=== PATIENT | male | born 1945 | race Caucasian/White ===

== ENCOUNTER 2018-11-13 03:29 | Inpatient (IN) | payer MEDICARE, BC ==
[2018-11-13] MEDS ORDERED: Sodium Chloride 0.9% 1,000 ML IV ONE (03:42)
--- NOTE | 2018-11-13 04:14 | EDM.PDOC ---
"ED HPI GENERAL MEDICAL PROBLEM - General Chief Complaint: Abdominal Pain Stated Complaint: AMBULANCE/UNKNOWN Time Seen by Provider: 11/13/18 03:30 Source of Information: Reports: Patient, EMS History Limitations: Reports: No Limitations - History of Present Illness INITIAL COMMENTS - FREE TEXT/NARRATIVE: ED via [facility] with c/o nausea and vomiting since yesterday., Weak lightheaded this am. Reports emesis dark color since onset yesterday. No diarrhea, Does not feel bloated. SOB this am. Denies chest pain. - Related Data Allergies Allergy/AdvReac Type Severity Reaction Status Date / Time Zqhzock-Ril-Rnm Reductase Allergy Mild muscle pain Verified 08/21/18 15:28 Inhibitor atorvastatin calcium Allergy Other Verified 08/21/18 15:28 [From Lipitor] ezetimibe [From Vytorin] Allergy Other Verified 08/21/18 15:28 lisinopril Allergy Cough Verified 08/21/18 15:28 Penicillins Allergy Rash Verified 08/21/18 15:28 simvastatin Allergy Muscle Verified 08/21/18 15:28 Aches CALCIUM CONTAINTING COMPOUNDS Allergy Other Uncoded 08/21/18 15:28 Home Meds: Home Meds Aspirin [Halfprin] 81 mg PO DAILY 02/27/14 [History] Brimonidine/Timolol [Combigan 0.2%/0.5% Ophth Soln] 1 drop EYEBOTH BID 02/27/14 [History] Insulin Aspart [NovoLOG] 32 units SUBCUT TID 02/27/14 [History] Insulin Detemir [Levemir] 60 units SUBCUT BEDTIME 02/27/14 [History] Levothyroxine 150 mcg PO DAILY 02/27/14 [History] Metoprolol Tartrate [Lopressor] 25 mg PO DAILY 02/27/14 [History] Niacin [Slo-Niacin] 200 mg PO DAILY 02/27/14 [History] amLODIPine Besylate [Amlodipine Besylate] 10 mg PO DAILY 02/27/14 [History] Clopidogrel [Plavix] 75 mg PO DAILY 03/14/14 [History] Losartan [Cozaar] 25 mg PO DAILY 09/27/15 [History] hydroCHLOROthiazide [Hydrochlorothiazide] 12.5 mg PO DAILY 09/27/15 [History] Ascorbate Calcium [Vitamin C] 1 tab PO DAILY 09/28/15 [History] Cholecalciferol (Vitamin D3) [Vitamin D] 1,000 mg PO DAILY 09/28/15 [History] Oxybutynin Chloride [Ditropan Xl] 15 mg PO DAILY 02/06/17 [History] Bimatoprost [LUMIGAN 0.01% Ophth Soln] 1 drop EYEBOTH BEDTIME 11/13/18 [History] Dorzolamide [Trusopt 2% Ophth Soln] 1 drop EYEBOTH BID 11/13/18 [History] Ezetimibe 10 mg PO DAILY 11/13/18 [History] Mirabegron [Myrbetriq] 50 mg PO DAILY 11/13/18 [History] Past Medical History HEENT History: Reports: Glaucoma Other Gastrointestinal History: Rectal bleed Other Musculoskeletal History: some arthritis Other Neuro History: MERALGIA PARESTHETICA Endocrine/Metabolic History: Reports: Diabetes, Type II Other Endocrine/Metabolic History: HYPOTHRYRIODISM - Past Surgical History Other HEENT Surgeries/Procedures: EYE SURGERY Cardiovascular Surgical History: Reports: Coronary Artery Bypass Social & Family History - Living Situation & Occupation Occupation: Retired ED ROS GENERAL - Review of Systems Review Of Systems: ROS reveals no pertinent complaints other than HPI. ED EXAM, GI/ABD - Physical Exam Exam: See Below Exam Limited By: No Limitations General Appearance: Alert, Moderate Distress, Obese Eyes: Bilateral: EOMI Ears: Normal External Exam Nose: Normal Inspection Throat/Mouth: Other (mucus membranes parched) Head: Atraumatic, Normocephalic Neck: Normal Inspection Respiratory/Chest: Lungs Clear Cardiovascular: Normal Peripheral Pulses, Regular Rate, Rhythm GI/Abdominal Exam: Soft, Distended, Tender (general), Abnormal Bowel Sounds ( hypoactive). No: Guarding, Rigid, Rebound Rectal (Males) Exam: Heme - Stool Neurological: Alert, Oriented, Normal Cognition Skin Exam: Warm, Dry, Intact, Other (face flushed) Course - Vital Signs Last Recorded V/S: Last Vital Signs Temp 100.4 F 11/13/18 05:57 Pulse 68 11/13/18 03:33 Resp 18 11/13/18 03:33 BP 128/52 L 11/13/18 03:33 Pulse Ox 96 11/13/18 03:33 - Orders/Labs/Meds Orders: Active Orders 24 hr Category Date Time Status EKG Documentation Completion [RC] URGENT Care 11/13/18 03:42 Active Glucose [Blood Glucose Check, Bedside] [RC] ONETIME Care 11/13/18 05:38 Active CULTURE BLOOD [BC] Stat Lab 11/13/18 03:45 Received CULTURE BLOOD [BC] Stat Lab 11/13/18 04:45 Received UA RFX WHITNEY AND CULT IF INDIC [URIN] Urgent Lab 11/13/18 06:17 Received Blood Culture x2 Reflex Set [OM.PC] Stat Oth 11/13/18 03:44 Ordered Labs: Laboratory Tests 11/13/18 11/13/18 11/13/18 Range/Units 03:45 03:45 03:45 WBC 7.8 (5.0-10.0) 10^3/uL RBC 5.18 (4.6-6.2) 10^6/uL Hgb 15.3 (14.0-18.0) g/dL Hct 44.3 (40.0-54.0) % MCV 85.5 (80-100) fL MCH 29.5 (27.0-34.0) pg MCHC 34.5 (33.0-35.0) g/dL Plt Count 164 (150-450) 10^3/uL Neut % (Auto) 85.0 H (42.2-75.2) % Lymph % (Auto) 11.1 L (20.5-50.1) % Boundary % (Auto) 3.7 (2-8) % Eos % (Auto) 0.1 L (1.0-3.0) % Baso % (Auto) 0.1 (0.0-1.0) % D-Dimer, Quantitative (0-400) ng/mL Sodium 138 (135-145) mmol/L Potassium 3.1 L (3.6-5.0) mmol/L Chloride 98 L (101-111) mmol/L Carbon Dioxide 22.0 (21.0-31.0) mmol/L Anion Gap 21.1 BUN 21 H (7-18) mg/dL Creatinine 1.0 (0.6-1.3) mg/dL Est Cr Clr Drug Dosing 67.93 mL/min Estimated GFR (MDRD) > 60 BUN/Creatinine Ratio 21.00 Glucose 240 H (74-105) mg/dL POC Glucose (83-110) mg/dl Lactic Acid (0.5-2.2) mmol/L Calcium 9.2 (8.4-10.2) mg/dl Magnesium 1.8 (1.8-2.5) mg/dL Total Bilirubin 1.2 H (0.2-1.0) mg/dL AST 26 (10-42) IU/L ALT 23 (10-60) IU/L Alkaline Phosphatase 44 (42-121) IU/L CK-MB (CK-2) 1.80 (0.4-4.7) ng/mL Troponin I < 0.02 (0.00-0.02) ng/ml B-Natriuretic Peptide 28 (0-100) pg/ml Total Protein 7.3 (6.7-8.2) g/dl Albumin 4.3 (3.2-5.5) g/dl Globulin 3.0 Albumin/Globulin Ratio 1.43 Amylase 28 (28-100) U/L Lipase 17 L (22-51) U/L 11/13/18 11/13/18 11/13/18 Range/Units 03:45 03:45 05:42 WBC (5.0-10.0) 10^3/uL RBC (4.6-6.2) 10^6/uL Hgb (14.0-18.0) g/dL Hct (40.0-54.0) % MCV (80-100) fL MCH (27.0-34.0) pg MCHC (33.0-35.0) g/dL Plt Count (150-450) 10^3/uL Neut % (Auto) (42.2-75.2) % Lymph % (Auto) (20.5-50.1) % Boundary % (Auto) (2-8) % Eos % (Auto) (1.0-3.0) % Baso % (Auto) (0.0-1.0) % D-Dimer, Quantitative < 100 (0-400) ng/mL Sodium (135-145) mmol/L Potassium (3.6-5.0) mmol/L Chloride (101-111) mmol/L Carbon Dioxide (21.0-31.0) mmol/L Anion Gap BUN (7-18) mg/dL Creatinine (0.6-1.3) mg/dL Est Cr Clr Drug Dosing mL/min Estimated GFR (MDRD) BUN/Creatinine Ratio Glucose (74-105) mg/dL POC Glucose 216 H (83-110) mg/dl Lactic Acid 1.4 (0.5-2.2) mmol/L Calcium (8.4-10.2) mg/dl Magnesium (1.8-2.5) mg/dL Total Bilirubin (0.2-1.0) mg/dL AST (10-42) IU/L ALT (10-60) IU/L Alkaline Phosphatase (42-121) IU/L CK-MB (CK-2) (0.4-4.7) ng/mL Troponin I (0.00-0.02) ng/ml B-Natriuretic Peptide (0-100) pg/ml Total Protein (6.7-8.2) g/dl Albumin (3.2-5.5) g/dl Globulin Albumin/Globulin Ratio Amylase (28-100) U/L Lipase (22-51) U/L Meds: Medications Discontinued Medications Generic Name Dose Route Start Last Admin Trade Name Lokiq PRN Reason Stop Dose Admin Famotidine 20 mg 11/13/18 04:58 11/13/18 05:27 Pepcid IVPUSH 11/13/18 04:59 20 mg ONETIME ONE Administration Sodium Chloride 1,000 mls @ 500 mls/hr 11/13/18 03:42 11/13/18 03:51 Normal Saline IV 11/13/18 05:41 500 mls/hr .BOLUS ONE Administration Potassium Chloride 10 meq/ 100 mls @ 100 mls/hr 11/13/18 04:30 11/13/18 04:36 Premix IV 11/13/18 05:29 100 mls/hr ONETIME ONE Administration Iopamidol 100 ml 11/13/18 04:35 11/13/18 05:28 Isovue-300 (61%) IVPUSH 11/13/18 04:36 100 ml ONETIME ONE Administration Ondansetron HCl 4 mg 11/13/18 04:58 11/13/18 05:25 Zofran IV 11/13/18 04:59 4 mg ONETIME ONE Administration - Radiology Interpretation Free Text/Narrative:: Name: BHUMI HOLLOWAY Age: 73Years M Date: 11/13/2018 SSN: -- : 1945 Study: XR CHEST 1 VIEW Requesting Physician: NOAH ALMANZA Images: 1 Addl Studies: Provided Clinical History: Contrast: Contrast Medium: Contrast Amount: Contrast Method: CONFIDENTIALITY STATEMENT This report is intended only for use by the referring physician, and only in accordance with law. If you received this in error, call [phone]. Page 1 of 1 EXAM: XR Chest, 1 View EXAM DATE/TIME: 11/13/2018 4:54 AM CLINICAL HISTORY: 73 years old, male; Signs and symptoms; Other: Fever, vomiting, abdominal pain TECHNIQUE: XR of the chest, 1 view. COMPARISON: CR Chest 2V 03/14/2014 7:25 PM FINDINGS: Lungs: Unremarkable. No consolidation. Pleural space: Unremarkable. No pleural effusion. No pneumothorax. Heart/Mediastinum: Unremarkable. No cardiomegaly. Bones/joints: Unremarkable. IMPRESSION: No acute intrathoracic process identified. Status of post open heart surgery Thank you for allowing us to participate in the care of your patient Name: BHUMI HOLLOWAY Age: 73Years M Date: 11/13/2018 SSN: -- : [id number] Study: CT ABDOMEN/PELVIS W Requesting Physician: NOAH ALMANZA Images: 264 Addl Studies: Provided Clinical History: Contrast: With Contrast Medium: Isoview Contrast Amount: 100 mL Contrast Method: RAC Page 1 of 2 EXAM: CT Abdomen and Pelvis With Contrast EXAM DATE/TIME: 11/13/2018 5:04 AM CLINICAL HISTORY: 73 years old, male; Signs and symptoms; Other: Fever, vomiting, abd pain TECHNIQUE: Axial computed tomography images of the abdomen and pelvis with intravenous contrast. All CT scans at this facility use at least one of these dose optimization techniques: automated exposure control; mA and/or kV adjustment per patient size (includes targeted exams where dose is matched to clinical indication); or iterative reconstruction. Coronal and sagittal reformatted images were created and reviewed. CONTRAST: 100 ml of Isoview administered intravenously. COMPARISON: No relevant prior studies available. FINDINGS: Lower thorax: No acute findings. ABDOMEN: Liver: Normal. No mass. Gallbladder and bile ducts: Cholelithiasis Pancreas: Normal. No ductal dilation. Spleen: Normal. No splenomegaly. BHUMI HOLLOWAY | Final Radiology Report CONFIDENTIALITY STATEMENT This report is intended only for use by the referring physician, and only in accordance with law. If you received this in error, call [phone]. Page 2 of 2 - Re-Assessments/Exams Free Text/Narrative Re-Assessment/Exam: 11/13/18 06:25 Dr Kovacs accepting for admission [facility] Departure - Departure Time of Disposition: 06:26 Disposition: Admitted As Inpatient 66 Clinical Impression: Gastroenteritis, Ileus Vomiting Qualifiers: Vomiting type: unspecified Vomiting Intractability: non-intractable Nausea presence: with nausea Qualified Code(s): R11.2 - Nausea with vomiting, unspecified Diabetes Qualifiers: Diabetes mellitus type: type 2 Diabetes mellitus meterman insulin use: unspecified senior care insulin use status Diabetes mellitus complication status: with hyperglycemia Qualified Code(s): E11.65 - Type 2 diabetes mellitus with hyperglycemia - Discharge Information Forms: ED Department Discharge - My Orders Last 24 Hours: My Active Orders 11/13/18 03:42 EKG Documentation Completion [RC] URGENT 11/13/18 03:44 Blood Culture x2 Reflex Set [OM.PC] Stat 11/13/18 03:45 CULTURE BLOOD [BC] Stat 11/13/18 04:45 CULTURE BLOOD [BC] Stat 11/13/18 05:38 Glucose [Blood Glucose Check, Bedside] [RC] ONETIME 11/13/18 06:17 UA RFX WHITNEY AND CULT IF INDIC [URIN] Urgent - Assessment/Plan Last 24 Hours: My Active Orders 11/13/18 03:42 EKG Documentation Completion [RC] URGENT 11/13/18 03:44 Blood Culture x2 Reflex Set [OM.PC] Stat 11/13/18 03:45 CULTURE BLOOD [BC] Stat 11/13/18 04:45 CULTURE BLOOD [BC] Stat 11/13/18 05:38 Glucose [Blood Glucose Check, Bedside] [RC] ONETIME 11/13/18 06:17 UA RFX WHITNEY AND CULT IF INDIC [URIN] Urgent"
[2018-11-13 04:23] LABS: ANION GAP 21.1; CHLORIDE,CL 98 mmol/L (101-111); SODIUM,NA 138 mmol/L (135-145)
[2018-11-13] MEDS ORDERED: Potassium Chloride 10 MEQ in Premix Bag 1 BAG IV ONE (04:30)
[2018-11-13] MEDS ORDERED: Iopamidol 612 MG/ML 100 ML Bottle IVPUSH ONE (04:35)
[2018-11-13] MEDS ORDERED: Famotidine 20 MG/2 ML SDV IVPUSH ONE (04:58)
[2018-11-13] MEDS ORDERED: Ondansetron 4 MG/2 ML SDV IV ONE (04:58)
[2018-11-13] MEDS ORDERED: Magnesium Hydroxide 400 MG/5 ML Susp 30 ML Cup PO PRN (07:21)
[2018-11-13] MEDS ORDERED: Polyethylene Glycol 3350 Powder 17 GM Packet PO PRN (07:21)
[2018-11-13] MEDS ORDERED: Bisacodyl 5 MG Tab PO PRN (07:21)
[2018-11-13] MEDS ORDERED: Promethazine 25 MG/ML SDV IM PRN (07:21)
[2018-11-13] MEDS ORDERED: Promethazine 25 MG Tab PO PRN (07:21)
[2018-11-13] MEDS ORDERED: Ondansetron 4 MG/2 ML SDV IVPUSH PRN (07:21)
[2018-11-13] MEDS ORDERED: Docusate Sodium 100 MG Cap PO PRN (07:21)
[2018-11-13] MEDS ORDERED: Ondansetron 4 MG Tab.DIS PO PRN (07:21)
--- NOTE | 2018-11-13 07:39 | PCM.HP ---
H&P History of Present Illness - General Date of Service: 11/13/18 Admit Problem/Dx: Admission Diagnosis/Problem Admission Diagnosis/Problem Ileus Source of Information: Patient, Provider History Limitations: Reports: No Limitations - History of Present Illness Initial Comments - Free Text/Narative: Mr. Brito is a 73 y.o male with medical history significant for CAD s/p 4vCABG , DM II, HTN, dyslipidemia, hypothyroidism, and appendicitis s/p appendectomy during his teenage years who presented to the ED with complaints of nausea, vomiting, and weakness. Reports that he started having nausea and vomiting around noon yesterday. Reports that he tried to drink water and threw it up. Later tried to drink hot chocolate and also vomited that. States emesis have been either clear or whatever he tried to drink. Cannot recall number of times he vomited. Reports that he had cramping abdominal pain but that has resolved since he got medication in the ED. Reports last bowel movement was yesterday morning before he started having n/v. Denies melena or hematochezia. Reports constipation x2 weeks for which he was taking metamucil but was only having small stools. Reports chills and diaphoresis. States that he started feeling lightheaded and weak so decided to come to the ED. Denies chest pain, fevers, shortness of breath, dysuria, hematuria, or worsening edema. He denies any abdominal trauma. He reports that he quit smoking in 1975, denies alcohol or illicit drug use. Denies any recent opiate medications intake. Reports that he did not take his insulin yesterday. - Related Data Allergies/Adverse Reactions: Allergies Allergy/AdvReac Type Severity Reaction Status Date / Time Fnlwwiu-Pus-Oyx Reductase Allergy Mild muscle pain Verified 08/21/18 15:28 Inhibitor atorvastatin calcium Allergy Other Verified 11/13/18 07:36 [From Lipitor] ezetimibe [From Vytorin] Allergy Other Verified 08/21/18 15:28 lisinopril Allergy Cough Verified 08/21/18 15:28 Penicillins Allergy Rash Verified 08/21/18 15:28 simvastatin Allergy Muscle Verified 08/21/18 15:28 Aches CALCIUM CONTAINTING COMPOUNDS Allergy Other Uncoded 08/21/18 15:28 Home Medications: Home Meds Aspirin [Halfprin] 81 mg PO DAILY 02/27/14 [History] Brimonidine/Timolol [Combigan 0.2%/0.5% Ophth Soln] 1 drop EYEBOTH BID 02/27/14 [History] Insulin Aspart [NovoLOG] 32 units SUBCUT TID 02/27/14 [History] Insulin Detemir [Levemir] 60 units SUBCUT BEDTIME 02/27/14 [History] Levothyroxine 150 mcg PO DAILY 02/27/14 [History] Metoprolol Tartrate [Lopressor] 25 mg PO DAILY 02/27/14 [History] Niacin [Slo-Niacin] 200 mg PO DAILY 02/27/14 [History] amLODIPine Besylate [Amlodipine Besylate] 10 mg PO DAILY 02/27/14 [History] Clopidogrel [Plavix] 75 mg PO DAILY 03/14/14 [History] Losartan [Cozaar] 25 mg PO DAILY 09/27/15 [History] hydroCHLOROthiazide [Hydrochlorothiazide] 12.5 mg PO DAILY 09/27/15 [History] Ascorbate Calcium [Vitamin C] 1 tab PO DAILY 09/28/15 [History] Cholecalciferol (Vitamin D3) [Vitamin D] 1,000 mg PO DAILY 09/28/15 [History] Oxybutynin Chloride [Ditropan Xl] 15 mg PO DAILY 02/06/17 [History] Bimatoprost [LUMIGAN 0.01% Ophth Soln] 1 drop EYEBOTH BEDTIME 11/13/18 [History] Dorzolamide [Trusopt 2% Ophth Soln] 1 drop EYEBOTH BID 11/13/18 [History] Ezetimibe 10 mg PO DAILY 11/13/18 [History] Mirabegron [Myrbetriq] 50 mg PO DAILY 11/13/18 [History] Past Medical History HEENT History: Reports: Glaucoma Cardiovascular History: Reports: CAD, Hypertension Other Gastrointestinal History: Rectal bleed Genitourinary History: Reports: Prostate Disorder Other Musculoskeletal History: some arthritis Other Neuro History: MERALGIA PARESTHETICA Endocrine/Metabolic History: Reports: Diabetes, Type II Other Endocrine/Metabolic History: HYPOTHRYRIODISM - Past Surgical History Other HEENT Surgeries/Procedures: EYE SURGERY Cardiovascular Surgical History: Reports: Coronary Artery Bypass Social & Family History - Tobacco Use Smoking Status *Q: Never Smoker Second Hand Smoke Exposure: No - Caffeine Use Caffeine Use: Reports: Coffee - Recreational Drug Use Recreational Drug Use: No - Living Situation & Occupation Occupation: Retired H&P Review of Systems - Review of Systems: Review Of Systems: ROS reveals no pertinent complaints other than HPI. Exam - Exam Exam: See Below - Vital Signs Vital Signs: Last Vital Signs Temp 100.4 F 11/13/18 05:57 Pulse 110 H 11/13/18 06:25 Resp 20 11/13/18 06:25 BP 162/67 H 11/13/18 06:25 Pulse Ox 94 L 11/13/18 06:25 Weight: 265 lb - Exam Physical Exam Comments:: General: Alert and oriented to place, time and person, in mild distress Head: atraumatic and normocephalic. Eyes: PERRLA, EOMI, anicteric, Ear, Nose and Throat: No gross abnormality found Neck: Supple Respiratory/Chest: CTAB, no wheezes, crackles, rales, or rhonci; Good air entry bilaterally. No increased work of breathing. Median sternotomy scar CVS: RRR, no murmur, rub, or gallop, peripheral pulses palpable. Gastrointestinal/Abd: Soft, distended; no bowel sounds, dull to percussion in the lower abdomen, typanic in the upper abdomen Lt upper > Right Upper Skin: No acute rashes noted. Neuro: Grossly non-focal. No cranial nerve abnormality. Moves all extremities. Psych: Alert and oriented to place time and person. Normal mood, congruent affect, good insight Musculoskeletal: No abnormality noted. Ext: No edema, no ulcers, no tenderness, no size differences, - Patient Data Lab Results Last 24 hrs: Laboratory Results - last 24 hr 11/13/18 11/13/18 11/13/18 Range/Units 03:45 03:45 03:45 WBC 7.8 (5.0-10.0) 10^3/uL RBC 5.18 (4.6-6.2) 10^6/uL Hgb 15.3 (14.0-18.0) g/dL Hct 44.3 (40.0-54.0) % MCV 85.5 (80-100) fL MCH 29.5 (27.0-34.0) pg MCHC 34.5 (33.0-35.0) g/dL Plt Count 164 (150-450) 10^3/uL Neut % (Auto) 85.0 H (42.2-75.2) % Lymph % (Auto) 11.1 L (20.5-50.1) % Mckenzie % (Auto) 3.7 (2-8) % Eos % (Auto) 0.1 L (1.0-3.0) % Baso % (Auto) 0.1 (0.0-1.0) % D-Dimer, Quantitative (0-400) ng/mL Sodium 138 (135-145) mmol/L Potassium 3.1 L (3.6-5.0) mmol/L Chloride 98 L (101-111) mmol/L Carbon Dioxide 22.0 (21.0-31.0) mmol/L Anion Gap 21.1 BUN 21 H (7-18) mg/dL Creatinine 1.0 (0.6-1.3) mg/dL Est Cr Clr Drug Dosing 67.93 mL/min Estimated GFR (MDRD) > 60 BUN/Creatinine Ratio 21.00 Glucose 240 H (74-105) mg/dL POC Glucose (83-110) mg/dl Lactic Acid (0.5-2.2) mmol/L Calcium 9.2 (8.4-10.2) mg/dl Magnesium 1.8 (1.8-2.5) mg/dL Total Bilirubin 1.2 H (0.2-1.0) mg/dL AST 26 (10-42) IU/L ALT 23 (10-60) IU/L Alkaline Phosphatase 44 (42-121) IU/L CK-MB (CK-2) 1.80 (0.4-4.7) ng/mL Troponin I < 0.02 (0.00-0.02) ng/ml B-Natriuretic Peptide 28 (0-100) pg/ml Total Protein 7.3 (6.7-8.2) g/dl Albumin 4.3 (3.2-5.5) g/dl Globulin 3.0 Albumin/Globulin Ratio 1.43 Amylase 28 (28-100) U/L Lipase 17 L (22-51) U/L Urine Color (YELLOW) Urine Appearance (CLEAR) Urine pH (5.0-9.0) Ur Specific [place] (1.005-1.030) Urine Protein (NEGATIVE) Urine Glucose (UA) (NEGATIVE) Urine Ketones (NEGATIVE) Urine Occult Blood (NEGATIVE) Urine Nitrite (NEGATIVE) Urine Bilirubin (NEGATIVE) Urine Urobilinogen (0.2-1.0) mg/dL Ur Leukocyte Esterase (NEGATIVE) 11/13/18 11/13/18 11/13/18 Range/Units 03:45 03:45 05:42 WBC (5.0-10.0) 10^3/uL RBC (4.6-6.2) 10^6/uL Hgb (14.0-18.0) g/dL Hct (40.0-54.0) % MCV (80-100) fL MCH (27.0-34.0) pg MCHC (33.0-35.0) g/dL Plt Count (150-450) 10^3/uL Neut % (Auto) (42.2-75.2) % Lymph % (Auto) (20.5-50.1) % Mckenzie % (Auto) (2-8) % Eos % (Auto) (1.0-3.0) % Baso % (Auto) (0.0-1.0) % D-Dimer, Quantitative < 100 (0-400) ng/mL Sodium (135-145) mmol/L Potassium (3.6-5.0) mmol/L Chloride (101-111) mmol/L Carbon Dioxide (21.0-31.0) mmol/L Anion Gap BUN (7-18) mg/dL Creatinine (0.6-1.3) mg/dL Est Cr Clr Drug Dosing mL/min Estimated GFR (MDRD) BUN/Creatinine Ratio Glucose (74-105) mg/dL POC Glucose 216 H (83-110) mg/dl Lactic Acid 1.4 (0.5-2.2) mmol/L Calcium (8.4-10.2) mg/dl Magnesium (1.8-2.5) mg/dL Total Bilirubin (0.2-1.0) mg/dL AST (10-42) IU/L ALT (10-60) IU/L Alkaline Phosphatase (42-121) IU/L CK-MB (CK-2) (0.4-4.7) ng/mL Troponin I (0.00-0.02) ng/ml B-Natriuretic Peptide (0-100) pg/ml Total Protein (6.7-8.2) g/dl Albumin (3.2-5.5) g/dl Globulin Albumin/Globulin Ratio Amylase (28-100) U/L Lipase (22-51) U/L Urine Color (YELLOW) Urine Appearance (CLEAR) Urine pH (5.0-9.0) Ur Specific [place] (1.005-1.030) Urine Protein (NEGATIVE) Urine Glucose (UA) (NEGATIVE) Urine Ketones (NEGATIVE) Urine Occult Blood (NEGATIVE) Urine Nitrite (NEGATIVE) Urine Bilirubin (NEGATIVE) Urine Urobilinogen (0.2-1.0) mg/dL Ur Leukocyte Esterase (NEGATIVE) 11/13/18 Range/Units 06:17 WBC (5.0-10.0) 10^3/uL RBC (4.6-6.2) 10^6/uL Hgb (14.0-18.0) g/dL Hct (40.0-54.0) % MCV (80-100) fL MCH (27.0-34.0) pg MCHC (33.0-35.0) g/dL Plt Count (150-450) 10^3/uL Neut % (Auto) (42.2-75.2) % Lymph % (Auto) (20.5-50.1) % Mckenzie % (Auto) (2-8) % Eos % (Auto) (1.0-3.0) % Baso % (Auto) (0.0-1.0) % D-Dimer, Quantitative (0-400) ng/mL Sodium (135-145) mmol/L Potassium (3.6-5.0) mmol/L Chloride (101-111) mmol/L Carbon Dioxide (21.0-31.0) mmol/L Anion Gap BUN (7-18) mg/dL Creatinine (0.6-1.3) mg/dL Est Cr Clr Drug Dosing mL/min Estimated GFR (MDRD) BUN/Creatinine Ratio Glucose (74-105) mg/dL POC Glucose (83-110) mg/dl Lactic Acid (0.5-2.2) mmol/L Calcium (8.4-10.2) mg/dl Magnesium (1.8-2.5) mg/dL Total Bilirubin (0.2-1.0) mg/dL AST (10-42) IU/L ALT (10-60) IU/L Alkaline Phosphatase (42-121) IU/L CK-MB (CK-2) (0.4-4.7) ng/mL Troponin I (0.00-0.02) ng/ml B-Natriuretic Peptide (0-100) pg/ml Total Protein (6.7-8.2) g/dl Albumin (3.2-5.5) g/dl Globulin Albumin/Globulin Ratio Amylase (28-100) U/L Lipase (22-51) U/L Urine Color Yellow (YELLOW) Urine Appearance Clear (CLEAR) Urine pH 5.5 (5.0-9.0) Ur Specific [place] 1.025 (1.005-1.030) Urine Protein Negative (NEGATIVE) Urine Glucose (UA) Negative (NEGATIVE) Urine Ketones 80 H (NEGATIVE) Urine Occult Blood Negative (NEGATIVE) Urine Nitrite Negative (NEGATIVE) Urine Bilirubin Negative (NEGATIVE) Urine Urobilinogen 0.2 (0.2-1.0) mg/dL Ur Leukocyte Esterase Negative (NEGATIVE) Result Diagrams: 11/13/18 03:45 11/13/18 03:45 Fermín Results Last 24 hrs: Microbiology 11/13/18 03:49 Influenza Type A Antigen Screen - Final Nasal, Unspecified NEGATIVE INFLUENZA A VIRUS AG Influenza Type B Antigen Screen - Final NEGATIVE INFLUENZA B VIRUS AG 11/13/18 03:50 Stool Occult Blood (FERMÍN) - Final Stool / Feces - Problem List (1) Hypokalemia SNOMED Code(s): 54290010 ICD Code: E87.6 - HYPOKALEMIA Status: Acute Current Visit: Yes (2) Diabetes SNOMED Code(s): 82545557 ICD Code: E11.9 - TYPE 2 DIABETES MELLITUS WITHOUT COMPLICATIONS Status: Acute Current Visit: No Qualifiers: Diabetes mellitus type: type 2 Diabetes mellitus [facility] 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 Diabetes mellitus complication status: with hyperglycemia Qualified Code(s): E11.65 - Type 2 diabetes mellitus with hyperglycemia; Z79.4 - detention (current) use of insulin (3) Gastroenteritis SNOMED Code(s): 65034003 ICD Code: K52.9 - NONINFECTIVE GASTROENTERITIS AND COLITIS, UNSPECIFIED Status: Acute Current Visit: Yes (4) Ileus SNOMED Code(s): 565686381 ICD Code: K56.7 - ILEUS, UNSPECIFIED Status: Acute Current Visit: Yes (5) Vomiting SNOMED Code(s): 247794440 ICD Code: R11.10 - VOMITING, UNSPECIFIED Status: Acute Current Visit: Yes Qualifiers: Vomiting type: unspecified Vomiting Intractability: non-intractable Nausea presence: with nausea Qualified Code(s): R11.2 - Nausea with vomiting, unspecified Problem List Initiated/Reviewed/Updated: Yes Orders Last 24hrs: Active Orders 24 hr Category Date Time Status Patient Status [ADT] Routine ADT 11/13/18 07:21 Ordered Blood Glucose Check, Bedside [RC] QIDACANDBED Care 11/13/18 07:21 Ordered Cardiac Monitoring [RC] CONTINUOUS Care 11/13/18 07:23 Ordered EKG Documentation Completion [RC] URGENT Care 11/13/18 03:42 Active Glucose [Blood Glucose Check, Bedside] [RC] ONETIME Care 11/13/18 05:38 Active Intake and Output [RC] QSHIFT Care 11/13/18 07:23 Ordered Oxygen Therapy [RC] PRN Care 11/13/18 07:21 Ordered Up With Assistance [RC] ASDIRECTED Care 11/13/18 07:21 Ordered VTE/DVT Education [RC] PER UNIT ROUTINE Care 11/13/18 07:21 Ordered Vital Signs [RC] Q4H Care 11/13/18 07:21 Ordered Nothing per Oral Now Diet [DIET] Diet 11/13/18 Breakfast Ordered BASIC METABOLIC PANEL,BMP [CHEM] DAILY Lab 11/14/18 07:30 Ordered CULTURE BLOOD [BC] Stat Lab 11/13/18 03:45 Received CULTURE BLOOD [BC] Stat Lab 11/13/18 04:45 Received MAGNESIUM [CHEM] DAILY Lab 11/14/18 07:30 Ordered PHOSPHORUS [CHEM] DAILY Lab 11/14/18 07:30 Ordered Bisacodyl [Dulcolax] Med 11/13/18 07:21 Ordered 5 mg PO DAILY PRN Docusate Sodium [Colace] Med 11/13/18 07:21 Ordered 100 mg PO BID PRN Docusate Sodium/Sennosides [Senna Plus] Med 11/13/18 07:21 Ordered 1 tab PO BEDTIME PRN Heparin Sodium Med 11/13/18 14:00 Ordered 5,000 units SUBCUT Q8HR Magnesium Hydroxide [Milk of Magnesia] Med 11/13/18 07:21 Ordered 30 ml PO Q12H PRN Ondansetron [Zofran ODT] Med 11/13/18 07:21 Ordered 4 mg PO Q6H PRN Ondansetron [Zofran] Med 11/13/18 07:21 Ordered 4 mg IVPUSH Q6H PRN Pantoprazole [ProTONIX IV] Med 11/13/18 09:00 Ordered 40 mg IVPUSH DAILY Polyethylene Glycol 3350 [MiraLAX] Med 11/13/18 07:21 Ordered 17 gm PO DAILY PRN Promethazine [Phenergan] Med 11/13/18 07:21 Ordered 25 mg PO Q6H PRN Promethazine [Phenergan] Med 11/13/18 07:21 Ordered 6.25 mg IM Q6H PRN Sodium Chloride 0.9% @ 125 MLS/HR (1000ml) Med 11/13/18 07:30 Ordered Sodium Chloride 0.9% [Normal Saline] 1,000 ml IV ASDIRECTED Blood Culture x2 Reflex Set [OM.PC] Stat Oth 11/13/18 03:44 Ordered Nasogastric Orogastric Tube Insertion [OM.PC] Urgent Oth 11/13/18 07:24 Ordered Resuscitation Status Routine Resus Stat 11/13/18 07:21 Ordered Medication Orders Bisacodyl (Dulcolax) 5 mg PO DAILY PRN PRN Reason: Constipation Docusate Sodium (Colace) 100 mg PO BID PRN PRN Reason: Constipation Heparin Sodium (Porcine) (Heparin Sodium) 5,000 units SUBCUT Q8HR ROSE Sodium Chloride (Normal Saline) 1,000 mls @ 125 mls/hr IV ASDIRECTED ROSE Magnesium Hydroxide (Milk Of Magnesia) 30 ml PO Q12H PRN PRN Reason: Constipation Ondansetron HCl (Zofran) 4 mg IVPUSH Q6H PRN PRN Reason: Nausea/Vomiting Ondansetron HCl (Zofran Odt) 4 mg PO Q6H PRN PRN Reason: nausea, able to take PO Pantoprazole Sodium (Protonix Iv) 40 mg IVPUSH DAILY ROSE Polyethylene Glycol (Miralax) 17 gm PO DAILY PRN PRN Reason: Constipation Promethazine HCl (Phenergan) 25 mg PO Q6H PRN PRN Reason: nausea, able to take PO Promethazine HCl (Phenergan) 6.25 mg IM Q6H PRN PRN Reason: Nausea/Vomiting Senna/Docusate Sodium (Senna Plus) 1 tab PO BEDTIME PRN PRN Reason: Constipation Assessment/Plan Comment:: #Ileus/Gastroenteritis: patient with absent bowel sounds. CT findings of gastroenteritis and ileus. Presented with nausea/vomiting since noon yesterday. - NGT insertion, set to LIWS - Serial abdominal exam - NPO - IVF -Encourage ambulation #Hypokalemia: K of 3.1. Got 10 mEq IV K in the ED. - Monitor and replete electrolytes. #DM II: Hold short acting insulin - Continue Levemir - SSI with hypoglycemia protocol. #Dyslipidemia: - Hold home medications. #CAD/HTN: BP at goal. - Hold home BP meds. - If BP is elevated, will use PRN lopressor or hydralazine DVT Ppx: Heparin GI PPx: Protonix Code status: DNR/DNI
[2018-11-13] MEDS: Sodium Chloride 0.9% 1,000 ML IV SCH ×2 (09:30→18:41)
[2018-11-13] MEDS: Potassium Chloride 10 MEQ in Premix Bag 1 BAG IV SCH ×4 (10:24→14:52)
[2018-11-13] MEDS: Pantoprazole 40 MG Vial IVPUSH SCH (10:24)
[2018-11-13] MEDS ORDERED: Pantoprazole 40 MG Vial IVPUSH SCH (11:30)
--- NOTE | 2018-11-13 11:59 | CR ---
Clinical history: 73-year-old male fever, vomiting, abdominal pain and "cholelithiasis with ileus" diagnosed on CT scan abdomen. Interpretation: Flat plate abdomen confirm satisfactory placement nasogastric tube (tip near the gastric outlet RUQ) Sternotomy wires and mediastinal clips. Nonspecific bowel pattern. Calcifications right abdomen consistent with "gallstones ".
[2018-11-13] MEDS: Heparin Sodium 5,000 Units/ML Vial SUBCUT SCH ×2 (15:07→22:20)
[2018-11-13] MEDS ORDERED: Insulin Glarg,Human.Rec.Analog 100 UNIT/ML ML SUBCUT SCH (21:00)
[2018-11-13] MEDS: Insulin Glarg,Human.Rec.Analog 100 UNIT/ML ML SUBCUT SCH (22:16)
[2018-11-13] MEDS: Dorzolamide 2% Ophth Soln 10 ML Bottle EYEBOTH SCH (22:20)
[2018-11-14] MEDS: Sodium Chloride 0.9% 1,000 ML IV SCH ×3 (02:59→19:16)
[2018-11-14] MEDS: Heparin Sodium 5,000 Units/ML Vial SUBCUT SCH ×3 (06:36→22:13)
[2018-11-14 06:52] LABS: ANION GAP 15.7; CHLORIDE,CL 104 mmol/L (101-111); SODIUM,NA 139 mmol/L (135-145)
[2018-11-14] MEDS: Pantoprazole 40 MG Vial IVPUSH SCH (09:34)
[2018-11-14] MEDS: Dorzolamide 2% Ophth Soln 10 ML Bottle EYEBOTH SCH ×2 (09:36→20:45)
[2018-11-14] MEDS: BIMATOPROST EYEBOTH SCH ×2 (10:56→21:03)
[2018-11-14] MEDS: BRIMONIDINE EYEBOTH SCH ×3 (10:56→21:03)
[2018-11-14] MEDS: TIMOLOL EYEBOTH SCH ×3 (10:56→21:03)
--- NOTE | 2018-11-14 12:34 | PN ---
DATE: 11/14/2018 SUBJECTIVE: Mr. Johnathan Brito is a 73-year-old male with medical history significant for hypertension, hyperlipidemia, coronary artery disease, status post coronary artery bypass graft; type 2 diabetes mellitus, hypothyroidism history of appendicitis in the past, status post appendicectomy many years back; was admitted to the hospital with complaints of increasing abdominal pain, nausea, and vomiting; and he had a CT scan which showed evidence of distended stomach and also small bowels consistent with possible ileus versus obstruction versus gastroenteritis. For the last 24 hours, the patient continues to have the NG tube to intermittent suction and has copious amount of secretion from the NG tube. He is kept n.p.o. at this time. Treated with IV fluids. Denies any chest pain. No shortness of breath. No abdominal pain. The patient denies any passing gas or flatus at this time. REVIEW OF SYSTEMS: Cardiovascular, respiratory, gastrointestinal, neurology, constitutional were all evaluated. PHYSICAL EXAMINATION: Vital Signs: Temperature of 98, pulse of 82, blood pressure 145/65, respiratory rate of 16, and saturating at 97% on room air. General Appearance: The patient is well oriented to time, place, and person. Follows commands spontaneously. Cardiovascular System: S1 and S2 heard with normal intensity. No gallops. Respiratory System: Clear to auscultation bilaterally. No wheeze. No crepitations. Abdomen: Soft. Bowel sounds positive. Nontender. No rigidity. Extremities: No edema in the bilateral lower extremities. Neurology: No gross focal neurological deficit. MEDICATIONS: Reviewed. Continue with: 1. Heparin 5000 subcutaneous q.8 hourly. 2. Lantus 50 units at bedtime. 3. Zofran as needed. 4. Protonix 40 mg IV daily. LABORATORY DATA: Labs reviewed. Sodium 139, potassium 3.7, chloride 104, bicarb 23, BUN 15, creatinine 0.8, and glucose 150. ASSESSMENT: 1. Ileus versus obstruction versus gastroenteritis. 2. Hypokalemia, improved. 3. Type 2 diabetes mellitus. 4. Hyperlipidemia. 5. Hypertension. 6. Coronary artery disease. PLAN: 1. Ileus. The patient is noted to have distended stomach and also small bowels. Unsure if this is ileus versus gastric outlet obstruction. The patient had history of colonoscopies in the past which showed evidence of polyps. The patient's abdominal exam looks benign. The patient denies any abdominal pain. He is noted to have bowel sounds positive. We will continue with the NG tube to intermittent suction. Continue with IV fluids. We will await for return of bowel function, and we will closely follow. 2. Hypokalemia. The patient was noted to have hypokalemia at the time of admission which is much improved, back to normal at this time. 3. Hypertension. Blood pressure seems to be in acceptable range. Continue to monitor. 4. Type 2 diabetes mellitus. The patient is kept n.p.o. at this time. His blood sugar is 150. Use insulin as needed. Try to avoid any hypoglycemic episodes. Have him on hypoglycemic protocol. 5. DVT prophylaxis. Continue with heparin for DVT prophylaxis. 6. Discussed with family members at bedside. [facility] /[id number]
[2018-11-14] MEDS ORDERED: Insulin Glarg,Human.Rec.Analog 100 UNIT/ML ML SUBCUT SCH (21:00)
[2018-11-14] MEDS ORDERED: Insulin Glarg,Human.Rec.Analog 100 UNIT/ML ML SUBCUT ONE (21:01)
[2018-11-14] MEDS: Insulin Glarg,Human.Rec.Analog 100 UNIT/ML ML SUBCUT SCH (21:02)
[2018-11-15] MEDS: Sodium Chloride 0.9% 1,000 ML IV SCH ×3 (02:57→22:15)
[2018-11-15] MEDS: Heparin Sodium 5,000 Units/ML Vial SUBCUT SCH ×3 (05:49→22:16)
[2018-11-15] MEDS: Pantoprazole 40 MG Vial IVPUSH SCH (08:57)
[2018-11-15] MEDS: Dorzolamide 2% Ophth Soln 10 ML Bottle EYEBOTH SCH ×2 (08:59→20:54)
[2018-11-15] MEDS: BRIMONIDINE EYEBOTH SCH ×2 (09:00→20:55)
[2018-11-15] MEDS: TIMOLOL EYEBOTH SCH ×2 (09:00→20:55)
--- NOTE | 2018-11-15 11:30 | CR ---
Clinical history: 73-year-old hospitalized male with cholelithiasis and "ileus" (NG tube). Interpretation: Radiographic improvement. NG tube in place, midepigastrium. *No residual evidence of ileus or mechanical bowel obstruction. Cluster of calcifications RUQ characteristic of gallstones.
[2018-11-15 11:46] LABS: ANION GAP 15.9; CHLORIDE,CL 102 mmol/L (101-111); SODIUM,NA 140 mmol/L (135-145)
[2018-11-15] MEDS ORDERED: Levothyroxine 150 MCG Tab PO SCH (12:37)
--- NOTE | 2018-11-15 13:21 | PN ---
DATE: 11/15/2018 SUBJECTIVE: Mr. Johnathan Brito is a 73-year-old male with a medical history significant for hypertension; hyperlipidemia; coronary artery disease, status post coronary artery bypass graft; type 2 diabetes mellitus; and hypothyroidism, admitted to the hospital with complaints of increasing abdominal pain, nausea, vomiting, and noted to have bowel ileus. The patient had a CT scan of the abdomen and pelvis at the time of admission which showed evidence of distended stomach and small bowel consistent with possible ileus. For the last 24 hours, the patient continues to have NG tube to intermittent suction. He denies any chest pains. No shortness of breath. No abdominal pain. The patient says that he has passed some flatus and feels like he might need to go to the bathroom. He denied any nausea or vomiting. REVIEW OF SYSTEMS: Cardiovascular, respiratory, gastrointestinal, neurology, constitutional were all evaluated. PHYSICAL EXAMINATION: Vital Signs: Temperature of 97.7, pulse of 85, blood pressure 151/71, respiratory rate of 18, and saturating at 97% on room air. General Appearance: The patient is well oriented to time, place, and person. Follows commands spontaneously. Cardiovascular System: S1 and S2 heard with normal intensity. No gallops. Respiratory System: Clear to auscultation bilaterally. No wheeze. No crepitations. Abdomen: Soft. Bowel sounds positive. Nontender. No rigidity. Extremities: No edema in the bilateral lower extremities. MEDICATIONS: Reviewed. Continue with: 1. Heparin 5000 subcutaneous q.8 hourly. 2. Decrease the Lantus to 15 units at bedtime. 3. Zofran 4 mg every 6 hours as needed for nausea and vomiting. 4. Protonix 40 mg IV daily. LABORATORY DATA: Labs reviewed. 1. Sodium 140, potassium 3.9, chloride 102, bicarb 26, BUN 12, creatinine 0.8, and glucose 143. 2. WBC 6.4, hemoglobin 14.8, hematocrit 43.6, and platelet count 133. IMAGING: X-ray of the abdomen shows well-placed NG tube. No residual evidence of ileus or mechanical bowel obstruction noted at this time on the x-ray of abdomen. ASSESSMENT: 1. Bowel ileus versus obstruction versus gastroenteritis. 2. Hypokalemia. 3. Type 2 diabetes mellitus. 4. Hypertension. 5. Hyperlipidemia. 6. Coronary artery disease. PLAN: 1. Ileus. The patient continues to have NG tube to intermittent suction, but he is able to pass flatus today. We will await for bowel movement. Once he is able to have good bowel movements, we will clamp the NG tube, and we will closely follow. Keep him hydrated with IV fluids. 2. Type 2 diabetes mellitus. The patient is kept n.p.o. at this time, so we will decrease the Lantus to 15 units at bedtime to avoid any hypoglycemic episodes. 3. Hypertension. The patient's blood pressure seems to be elevated. We will resume his antihypertensive medications. We will closely follow. 4. Coronary artery disease. The patient denies any ongoing chest pains. 5. The patient would benefit from upper endoscopy and colonoscopy once he is more stable and bowel obstruction is resolved. [facility] /[id number]
[2018-11-15] MEDS: amLODIPine 5 MG Tab PO SCH (13:39)
[2018-11-15] MEDS: Clopidogrel 75 MG Tab PO SCH (13:39)
[2018-11-15] MEDS: Oxybutynin 5 MG Tab.ER PO SCH (13:40)
[2018-11-15] MEDS: Metoprolol Tartrate 50 MG Tab PO SCH (13:45)
[2018-11-15] MEDS: Levothyroxine 150 MCG Tab PO SCH (13:47)
[2018-11-15] MEDS: BIMATOPROST EYEBOTH SCH (20:54)
[2018-11-15] MEDS ORDERED: Insulin Glarg,Human.Rec.Analog 100 UNIT/ML ML SUBCUT SCH (21:00)
[2018-11-16] MEDS: Sodium Chloride 0.9% 1,000 ML IV SCH (05:51)
[2018-11-16] MEDS: Levothyroxine 150 MCG Tab PO SCH (05:53)
[2018-11-16] MEDS: Heparin Sodium 5,000 Units/ML Vial SUBCUT SCH ×3 (05:54→22:05)
[2018-11-16 06:54] LABS: ANION GAP 14.4; CHLORIDE,CL 103 mmol/L (101-111); SODIUM,NA 137 mmol/L (135-145)
[2018-11-16] MEDS: Oxybutynin 5 MG Tab.ER PO SCH (08:57)
[2018-11-16] MEDS: amLODIPine 5 MG Tab PO SCH ×2 (08:57→11:19)
[2018-11-16] MEDS: Pantoprazole 40 MG Vial IVPUSH SCH (08:57)
[2018-11-16] MEDS: Metoprolol Tartrate 50 MG Tab PO SCH (08:58)
[2018-11-16] MEDS: Clopidogrel 75 MG Tab PO SCH (08:58)
[2018-11-16] MEDS: BRIMONIDINE EYEBOTH SCH ×2 (10:13→21:06)
[2018-11-16] MEDS: TIMOLOL EYEBOTH SCH ×2 (10:13→21:06)
[2018-11-16] MEDS: Dorzolamide 2% Ophth Soln 10 ML Bottle EYEBOTH SCH ×2 (10:13→21:06)
[2018-11-16] MEDS: Potassium Chloride 10 MEQ Tab.ER PO SCH ×3 (11:19→17:50)
[2018-11-16] MEDS ORDERED: Sodium Chloride 0.9% 10 ML Syringe FLUSH PRN (12:37)
--- NOTE | 2018-11-16 13:18 | PN ---
DATE: 11/16/2018 SUBJECTIVE: Mr. Johnathan Brito is a 73-year-old male with medical history significant for hypertension; hyperlipidemia; coronary artery disease, status post coronary artery bypass graft; type 2 diabetes mellitus; hypothyroidism; history of appendicitis in the past, status post appendicectomy; admitted with small bowel ileus versus obstruction. For the last 24 hours, the patient had a clamp trial, and he had only 25 mL residual, so we started him on clear liquid diet. He is able to pass flatus. No bowel movement yet. He denies any abdominal pain. No nausea. No vomiting. Denies any chest pain. Complains of having some tingling and numbness and some paresthesias to the right little finger in the ulnar nerve distribution. REVIEW OF SYSTEMS: Cardiovascular, respiratory, gastrointestinal, neurology, constitutional were all evaluated. PHYSICAL EXAMINATION: Vital Signs: Temperature of 98.7, pulse of 96, blood pressure 154/56, respiratory rate of 20, and saturating at 98% on room air. General Appearance: The patient is well oriented to time, place, and person. Cardiovascular System: S1 and S2 heard with normal intensity. No gallops. Respiratory System: Clear to auscultation bilaterally. No wheeze. No crepitations. Abdomen: Soft. Bowel sounds positive. Nontender. No rigidity. Extremities: No edema in the bilateral lower extremities. Neurology: No gross focal neurological deficits. MEDICATIONS: Reviewed. Continue the same. LABORATORY DATA: Sodium 137, potassium 3.4, chloride 103, bicarb 23, BUN 10, creatinine 0.8, and glucose 173. ASSESSMENT: 1. Bowel ileus. 2. Hypokalemia. 3. Type 2 diabetes mellitus. 4. Hypertension. 5. Hyperlipidemia. 6. Coronary artery disease. PLAN: 1. Ileus. The patient had a clamp trial yesterday. He had only 25 mL residual. We started him on clear liquid diet. He is able to pass flatus at this time but no bowel movement. He denied any abdominal pain. No nausea. No vomiting. At this time, we will closely follow. We will keep him on a clear liquid diet for now. As he remains asymptomatic, we will closely follow. We will hold IV fluids for now. 2. Hypertension. The patient's blood pressure is slightly elevated. We restarted him on antihypertensive medication. Continue with Norvasc and metoprolol. We will closely follow the patient, and we will further titrate the medication and optimize his blood pressure. 3. Type 2 diabetes mellitus. The patient is kept n.p.o. and just clear liquid diet. He was started on Lantus at a lower dose. We will increase the Lantus to 20 units subcu at night, and we will check his fingersticks 0 to 4 times a day. 4. Hypokalemia. We will replace with oral potassium chloride. Recheck a basic metabolic panel in the a.m. [facility] /[id number]
[2018-11-16] MEDS: Sodium Chloride 0.65% Nasal Spray 45 ML Bottle NAS PRN ×2 (16:14→21:07)
[2018-11-16] MEDS ORDERED: Insulin Glarg,Human.Rec.Analog 100 UNIT/ML ML SUBCUT SCH (21:00)
[2018-11-16] MEDS: BIMATOPROST EYEBOTH SCH (21:07)
[2018-11-17] MEDS: Levothyroxine 150 MCG Tab PO SCH (06:08)
[2018-11-17] MEDS: Heparin Sodium 5,000 Units/ML Vial SUBCUT SCH ×3 (06:08→21:33)
[2018-11-17 06:49] LABS: ANION GAP 14.5; CHLORIDE,CL 99 mmol/L (101-111); SODIUM,NA 134 mmol/L (135-145)
[2018-11-17] MEDS: TIMOLOL EYEBOTH SCH ×2 (09:41→21:34)
[2018-11-17] MEDS: Dorzolamide 2% Ophth Soln 10 ML Bottle EYEBOTH SCH ×2 (09:41→21:32)
[2018-11-17] MEDS: Potassium Chloride 10 MEQ Tab.ER PO SCH ×3 (09:41→18:02)
[2018-11-17] MEDS: Pantoprazole 40 MG Vial IVPUSH SCH ×2 (09:41→12:52)
[2018-11-17] MEDS: BRIMONIDINE EYEBOTH SCH ×2 (09:41→21:34)
[2018-11-17] MEDS: Sodium Chloride 0.65% Nasal Spray 45 ML Bottle NAS PRN (09:41)
[2018-11-17] MEDS: amLODIPine 5 MG Tab PO SCH (09:42)
[2018-11-17] MEDS: Metoprolol Tartrate 50 MG Tab PO SCH (09:42)
[2018-11-17] MEDS: Clopidogrel 75 MG Tab PO SCH (09:42)
[2018-11-17] MEDS: Oxybutynin 5 MG Tab.ER PO SCH (09:42)
[2018-11-17] MEDS ORDERED: Potassium Chloride 10 MEQ Tab.ER PO ONE (12:40)
--- NOTE | 2018-11-17 13:08 | CR ---
Clinical history: 73-year-old male hospitalized with nausea and abdominal pain (CT revealed "cholelithiasis and severe ileus"). Interpretation: Acute abdominal series (4 films, flat/upright) confirm satisfactory position of NG tube and cluster of tiny calcifications layered in the right upper quadrant (gallbladder) abdomen. No current signs of mechanical large or small bowel obstruction. No abdominal soft tissue mass lesion or free intraperitoneal air. Lung bases clear.
--- NOTE | 2018-11-17 13:22 | PN ---
DATE: 11/17/2018 SUBJECTIVE: Mr. Johnathan Brito is a 73-year-old male with medical history significant for hypertension; hyperlipidemia; coronary artery disease, status post coronary artery bypass graft; type 2 diabetes mellitus; hypothyroidism, admitted with bowel ileus. For the last 24 hours, the patient is able to pass flatus. He denies any vomiting at this time, though he felt nauseated at times. No bowel movement yet. He started on clear liquid diet and he is tolerating the diet very well. REVIEW OF SYSTEMS: Cardiovascular, respiratory, gastrointestinal, neurology, constitutional were all evaluated. PHYSICAL EXAMINATION: Vital Signs: Temperature of 98.7, pulse of 54, blood pressure of 148/70, respiratory rate of 20, saturating at 99% on room air. General Appearance: The patient is well oriented to time, place, and person. Follows commands spontaneously. Cardiovascular System: S1 and S2 heard with normal intensity. No gallops. Respiratory System: Clear to auscultation bilaterally. No wheeze. No crepitations. Abdomen: Soft. Bowel sounds are positive. Nontender. No rigidity. No guarding. No rebound tenderness. Extremities: Mild edema in bilateral lower extremities. MEDICATIONS: Reviewed. 1. Continue with Norvasc 5 mg daily. 2. We will increase the Lantus to 30 units at bedtime. 3. Continue with heparin for DVT prophylaxis. 4. Levothyroxine 150 mcg daily. 5. Continue metoprolol 25 mg daily. LABORATORY DATA: Sodium 134, potassium 3.5, chloride 99, bicarb 24, BUN 8, creatinine 0.7. ASSESSMENT: 1. Bowel ileus, improving. 2. Hypertension. 3. Type 2 diabetes mellitus. 4. Hyperlipidemia. 5. Coronary artery disease, status post coronary artery bypass graft. 6. History of appendicitis, requiring appendicectomy in the past. PLAN: 1. Ileus. The patient's ileus seems to be improving at this time. He is able to tolerate clear liquid diet. We will advance the diet to general diet as tolerated and we will closely follow. The patient remains asymptomatic at this time. We will get an x-ray of the abdomen for further evaluation and treatment. 2. Hypertension, improving. The patient started back on his home medications. We will further titrate up the medication to optimize his blood pressure. 3. Type 2 diabetes mellitus, improving. Continue the insulin regimen. We will increase the Lantus to 30 units as we are advancing the diet. Check his fingersticks and have him on supplemental scale insulin as needed. 4. Hyponatremia, this is mild in nature. This could be mainly from ileus. We will recheck a basic metabolic panel in a.m. 5. Hypokalemia. The patient is on oral potassium chloride. Continue the same. We will increase it to 3 times a day, and recheck a basic metabolic panel in a.m. [facility] /[id number]
[2018-11-17] MEDS: Metoprolol Tartrate 25 MG Tab PO SCH (18:02)
[2018-11-17] MEDS ORDERED: Insulin Glarg,Human.Rec.Analog 100 UNIT/ML ML SUBCUT SCH (21:00)
[2018-11-17] MEDS: BIMATOPROST EYEBOTH SCH (21:37)
[2018-11-18] MEDS: Heparin Sodium 5,000 Units/ML Vial SUBCUT SCH (05:54)
[2018-11-18] MEDS: Levothyroxine 150 MCG Tab PO SCH (05:55)
[2018-11-18] MEDS ORDERED: Pantoprazole 40 MG Tab.CR PO SCH (06:00)
[2018-11-18 06:56] LABS: ANION GAP 15.9; CHLORIDE,CL 99 mmol/L (101-111); SODIUM,NA 134 mmol/L (135-145)
[2018-11-18 07:59] VITALS: BP 141/65
[2018-11-18] MEDS: Potassium Chloride 10 MEQ Tab.ER PO SCH ×2 (09:43→13:15)
[2018-11-18] MEDS: Sodium Chloride 0.65% Nasal Spray 45 ML Bottle NAS PRN (09:43)
[2018-11-18] MEDS: BRIMONIDINE EYEBOTH SCH (09:43)
[2018-11-18] MEDS: TIMOLOL EYEBOTH SCH (09:43)
[2018-11-18] MEDS: Dorzolamide 2% Ophth Soln 10 ML Bottle EYEBOTH SCH (09:43)
[2018-11-18] MEDS: Clopidogrel 75 MG Tab PO SCH (09:43)
[2018-11-18] MEDS: Metoprolol Tartrate 25 MG Tab PO SCH (09:43)
[2018-11-18] MEDS: amLODIPine 5 MG Tab PO SCH (09:43)
[2018-11-18] MEDS: Oxybutynin 5 MG Tab.ER PO SCH (10:09)
--- NOTE | 2018-11-19 08:59 | DISCH ---
DATE OF SERVICE: 11/18/2018 ADMITTING DIAGNOSES: 1. Bowel obstruction versus bowel ileus. 2. Nausea and vomiting. 3. Possible gastroenteritis. 4. Hypokalemia. DISCHARGE DIAGNOSES: 1. Bowel ileus, resolved. 2. Hypokalemia, improved. 3. Hypertension. 4. Type 2 diabetes mellitus. HISTORY OF PRESENTING ILLNESS: Mr. Johnathan Brito is a 73-year-old male with medical history significant for hypertension; hyperlipidemia; coronary artery disease, status post coronary artery bypass graft; history of hypothyroidism, admitted with a bowel ileus. The patient had a CT scan of the abdomen and pelvis done at the time of admission which showed evidence of enlarged stomach with findings consistent bowel ileus. The patient had an NG tube to intermittent suction. The patient improved with treatment. He was treated with IV fluids. The patient was noted to have lower blood sugars, so we had to cut down on the insulin regimen while on this hospitalization as he was kept n.p.o. His bowel ileus got resolved, and we were able to advance diet to clear liquid diet and then to regular diet. The patient had good bowel movements prior to getting discharged. He denied any nausea or vomiting. He denied any abdominal pain. He is discharged home in stable condition. He is advised to follow with GI doctor as soon as possible for a possible endoscopy and colonoscopy for further evaluation and treatment. He is advised to follow with his primary care physician in the next 1 week of time. He is given stool softeners, and the patient is advised to take stool softeners to avoid any constipation. DISCHARGE MEDICATIONS: Include: 1. Vitamin C 1 tablet daily. 2. Aspirin 81 mg daily. 3. Lumigan ophthalmic at bedtime, both eyes. 4. Combigan 1 drop eyes, both twice daily. 5. Vitamin D3 at 1000 mg daily. 6. Plavix 75 mg daily. 7. Trusopt ophthalmic both twice daily. 8. Ezetimibe 10 mg daily. 9. NovoLog 32 units 3 times a day. 10.Levemir 60 units at bedtime. 11.Levothyroxine 150 mcg daily. 12.Cozaar 25 mg daily. 13.Metoprolol 25 mg daily. 14.Mirabegron 50 mg daily. 15.Niacin 200 mg daily. 16.Oxybutynin XL 15 mg daily. 17.MiraLAX 17 g oral daily as needed for constipation. 18.Potassium chloride 20 mEq twice a day for 5 days. 19.Norvasc 10 mg daily. 20.Hydrochlorothiazide 12.5 mg daily. PHYSICAL EXAMINATION: On the day of discharge: Vital Signs: Temperature of 98.7, pulse of 68, blood pressure 141/65, respiratory rate of 20, saturating at 96%. General Appearance: The patient is well oriented to time, place, and person. Follows commands spontaneously. Cardiovascular System: S1 and S2 heard with normal intensity. No gallops. Respiratory System: Clear to auscultation bilaterally. No wheeze. No crepitations. Abdomen: Soft. Bowel sounds positive. Nontender. No rigidity. Extremities: Mild edema in bilateral lower extremities. Neurology: No gross focal neurological deficit. CONDITION ON ADMISSION: Poor. CONDITION ON DISCHARGE: Stable. DISPOSITION: Discharged to home. ACTIVITY: As tolerated. DIET: Cardiac healthy diet with consistent carbohydrate diet. FOLLOWUP: Follow up with primary care physician in the next 1 week of time and follow with GI Clinic in the next 1 week for further evaluation with endoscopy and colonoscopy. TIME SPENT: Spent over 35 minutes of time in evaluating and treating this patient and discussing discharge plans. [facility] /[id number]
== END 2018-11-18 13:40 | disposition home or self-care (01) | DRG 389 ==
LOC: DL.ED 03:29 → DL.MS 06:59 → UNDOADMIN 06:59 → DL.MS 07:21
PROVIDERS: ADMIT Internal Medicine; ATTEND Internal Medicine
PROC: 0D9670Z Drainage of Stomach with Drainage Device, Via Natural or Artificial Opening (ICD-10-PCS; principal; 2018-11-13)
DX: K56.7 Ileus, unspecified (principal); E87.1 Hypo-osmolality and hyponatremia; R11.2 Nausea with vomiting, unspecified; I25.10 Atherosclerotic heart disease of native coronary artery without angina pectoris; R42 Dizziness and giddiness; I10 Essential (primary) hypertension; E03.9 Hypothyroidism, unspecified; E78.5 Hyperlipidemia, unspecified; E11.65 Type 2 diabetes mellitus with hyperglycemia; G57.10 Meralgia paresthetica, unspecified lower limb; H40.9 Unspecified glaucoma; M19.90 Unspecified osteoarthritis, unspecified site; Z66 Do not resuscitate; N42.9 Disorder of prostate, unspecified; Z79.4 Long term (current) use of insulin; Z88.0 Allergy status to penicillin; E87.6 Hypokalemia; Z88.8 Allergy status to other drugs, medicaments and biological substances; Z87.891 Personal history of nicotine dependence; Z79.82 Long term (current) use of aspirin; Z79.899 Other long term (current) drug therapy; Z95.1 Presence of aortocoronary bypass graft; Z98.890 Other specified postprocedural states
CPT/HCPCS: 36415; 71045; 74177; 80053; 81003; 82150; 82272; 82553; 82962; 83605; 83690; 83735; 83880; 84443; 84484; 85025; 85379; 87040 ×2; 87804 ×2; 93005; 96365; 99285; J2405; J3480; J3490; J7030; Q9967; 74018; 74019; 74021; 80048; 84100; 85027; A9270-GY; C9113; J1644; J1815-GY

== ENCOUNTER 2018-12-02 06:51 | Day surgery (SDC) | payer MEDICARE, BC ==
[~2018-12-02 06:51] MED LIST: Dextrose 5%-0.45% NaCl 1,000 ML IV SCH; Midazolam 1 MG/ML 2 ML SDV ONE; Sodium Chloride 0.9% 10 ML Syringe FLUSH PRN; fentaNYL 100 MCG/2 ML SDV ONE
[2018-12-02] MEDS ORDERED: fentaNYL 100 MCG/2 ML SDV IV ONE ×3 (06:52→08:50)
[2018-12-02] MEDS ORDERED: Midazolam 1 MG/ML 2 ML SDV IV ONE ×3 (06:52→08:51)
[2018-12-02 12:45] VITALS: BP 114/66
--- NOTE | 2018-12-02 13:11 | OR ---
DATE: 12/02/2018 PROCEDURE: Esophagogastroduodenoscopy and multiple pinch biopsies. INSTRUMENT USED: [id number]-HQ190 Olympus video panendoscope. PREMEDICATIONS: No oral or topical anesthesia used. Fentanyl 100 mcg intravenous, Versed 2 mg intravenous. Nasal O2 cannula. The procedure was done under pulse oximetry, BP recording, and cardiac rehabilitation specialist. INDICATION: The patient with recent episode of abdominal pain with protracted vomiting, unexplained and not responsive to medical measures. Has had longstanding difficulties of dyspepsia and abdominal bloating; type 2 diabetic, on multiple medications. Esophagogastroduodenoscopy is performed for detection of any active erosive lesions, Ayers esophagus and/or malignancy also under consideration, H. pylori status to be determined, small bowel biopsies to be obtained for celiac disease if indicated, endoscopic hemostasis therapy if needed. DESCRIPTION OF PROCEDURE: The scope was passed with ease. Adequate visualization of the esophagus was made from proximal to distal areas. No upper esophageal lesions identified. No distal esophageal stricture. No uphill or downhill esophageal varices. No Tiara-Bryant tear. No evidence of erosive esophagitis by [place] criteria. No esophageal polyp or tumor mass identified. Z-line was seen at around 40 cm distal to the oral verge, configuration consistent with grade by ZAP classification. No proximal gastric varices noted. Gastric fundus examination by retroflexion showed no polypoid lesions. No gastric ulcer, malignant mass, or vascular ectasia identified. Duodenal bulb showed no ulcer. Visualized second part of the duodenum was unremarkable. Multiple pinch biopsies, four in number, were taken from different areas of the second part of the duodenum. Tissues were also obtained from the duodenal bulb at 9 o'clock and 12 o'clock positions and sent for any histopathologic evidence of celiac disease. Multiple pinch biopsies were taken from the gastric antrum and proximal body and sent for PyloriTek test for H. pylori and histopathology. No bleeding was noted from any of the visualized areas at the completion of the examination. Photographs were taken of the duodenal bulb, gastric antrum, fundus, and distal esophagus. IMPRESSION: Normal study. The patient tolerated the procedure well. [facility] /[id number]
== END 2018-12-02 11:04 | disposition home or self-care (01) ==
LOC: DL.ENDO 06:51
PROVIDERS: ATTEND Internal Medicine Gastroenterology
DX: K29.50 Unspecified chronic gastritis without bleeding (principal); I10 Essential (primary) hypertension; E11.40 Type 2 diabetes mellitus with diabetic neuropathy, unspecified; E66.09 Other obesity due to excess calories; Z68.37 Body mass index [BMI] 37.0-37.9, adult; E03.9 Hypothyroidism, unspecified; I25.10 Atherosclerotic heart disease of native coronary artery without angina pectoris; E78.5 Hyperlipidemia, unspecified; Z87.891 Personal history of nicotine dependence; Z79.01 Long term (current) use of anticoagulants; Z79.4 Long term (current) use of insulin; Z79.899 Other long term (current) drug therapy; Z88.0 Allergy status to penicillin; Z88.8 Allergy status to other drugs, medicaments and biological substances
CPT/HCPCS: 43239; 87077; J2250; J3010; J7042

== ENCOUNTER → 2019-04-02 | Day surgery (SDC) | payer MEDICARE, BC ==
[~2019-04-02] MED LIST changes: +Midazolam 1 MG/ML 2 ML SDV IV ONE; +fentaNYL 100 MCG/2 ML SDV IV ONE
[2019-04-02 11:06] VITALS: BP 123/57; PULSE 66
--- NOTE | 2019-04-02 14:09 | OR ---
DATE: 04/02/2019 PROCEDURE PERFORMED: Total colonoscopy. INSTRUMENT USED: [id number] Olympus video colonoscope. PREMEDICATIONS: Fentanyl 100 mcg intravenous, Versed 3.5 mg intravenous. Nasal O2 cannula. The procedure was done under pulse oximetry, BP recording, and office clerk assistant. INDICATION: The patient with rectal bleeding and progressive constipation, unexplained and not responsive to medical measures. Colonoscopic examination is done for detection of any polypoid lesions and removal, endoscopic hemostasis therapy if needed. DESCRIPTION OF PROCEDURE: Initial rectal exam was unremarkable. Rigid anoscopy showed small internal hemorrhoids without bleeding from them. The colonoscope was passed with ease. Scattered diverticula were noted in the distal left colon along with some deformity. The scope was passed with ease up to the ileocecal area. Photographs were taken of the normal-appearing cecum, identified by landmarks of appendiceal orifice and double-bulged ileocecal folds. No bleeding was noted from any of the visualized areas at the commencement of the examination. The bowel preparation was found to be adequate, Lee scale 2 in the ascending colon and scale 3 in other areas of the colon. No stricture. No vascular ectasia. No large isolated ulcerations seen. No evidence of diffuse inflammatory bowel disease in the form of friability, contact bleeding, or ulcerations. No polyp or tumor mass identified. Probing the proximal sides of folds and flexures using adequate distention and clearing up the stool material, withdrawal of the scope was made, cecum to rectum, time over 6 minutes. No bleeding was noted from any of the visualized areas at the completion of examination. IMPRESSION: 1. Internal hemorrhoids. 2. Diverticulosis. The patient tolerated the procedure well. [facility] /[id number]
== END | disposition home or self-care (01) ==
LOC: DL.ENDO 06:14
PROVIDERS: ATTEND Internal Medicine Gastroenterology
DX: K62.5 Hemorrhage of anus and rectum (principal); K57.30 Diverticulosis of large intestine without perforation or abscess without bleeding; K64.8 Other hemorrhoids; K59.00 Constipation, unspecified
CPT/HCPCS: G0121; J2250; J3010; J7042

== ENCOUNTER 2019-04-13 21:00 | Emergency (ER) | payer MEDICARE, BC ==
[2019-04-13 21:18] LABS: SODIUM,NA 138 mmol/L (135-145)
--- NOTE | 2019-04-13 21:19 | EDM.PDOC ---
ED HPI GENERAL MEDICAL PROBLEM - General Chief Complaint: Diabetic Complaint Stated Complaint: DIABETIC REACTION Time Seen by Provider: 04/13/19 21:17 Source of Information: Reports: Patient History Limitations: Reports: No Limitations - History of Present Illness INITIAL COMMENTS - FREE TEXT/NARRATIVE: EMS arrived at scene of disoriented male, friends state he was there for supper and later went to check him and found disoriented. pt states is diabetic and took his insulin before going to friends for supper and woke up with EMS there. denies CP/SOB/DIAZ. right now feels fine. states take 32 units before every meal and has been trying to loose weight. - Related Data Allergies Allergy/AdvReac Type Severity Reaction Status Date / Time Ocafifp-Lep-Sgo Reductase Allergy Mild muscle pain Verified 04/13/19 21:31 Inhibitor atorvastatin calcium Allergy Muscle Verified 04/13/19 21:31 [From Lipitor] Aches ezetimibe [From Vytorin] Allergy Other Verified 04/13/19 21:31 lisinopril Allergy Cough Verified 04/13/19 21:31 Penicillins Allergy Rash Verified 04/13/19 21:31 simvastatin Allergy Muscle Verified 04/13/19 21:31 Aches CALCIUM CONTAINTING COMPOUNDS Allergy Other Uncoded 04/13/19 21:31 Home Meds: Home Meds Aspirin [Halfprin] 81 mg PO DAILY 02/27/14 [History] Brimonidine/Timolol [Combigan 0.2%/0.5% Ophth Soln] 1 drop EYEBOTH BID 02/27/14 [History] Insulin Aspart [NovoLOG] 32 units SUBCUT TIDMEALS 02/27/14 [History] Insulin Detemir [Levemir] 60 units SUBCUT BEDTIME 02/27/14 [History] Levothyroxine 150 mcg PO DAILY 02/27/14 [History] Metoprolol Tartrate [Lopressor] 25 mg PO DAILY 02/27/14 [History] Niacin [Slo-Niacin] 200 mg PO DAILY 02/27/14 [History] amLODIPine Besylate [Amlodipine Besylate] 10 mg PO DAILY 02/27/14 [History] Clopidogrel [Plavix] 75 mg PO DAILY 03/14/14 [History] Losartan [Cozaar] 25 mg PO DAILY 09/27/15 [History] hydroCHLOROthiazide [Hydrochlorothiazide] 12.5 mg PO DAILY 09/27/15 [History] Ascorbate Calcium [Vitamin C] 500 mg PO DAILY 09/28/15 [History] Cholecalciferol (Vitamin D3) [Vitamin D3] 1,000 mg PO DAILY 09/28/15 [History] Oxybutynin Chloride [Ditropan Xl] 15 mg PO DAILY 02/06/17 [History] Bimatoprost [LUMIGAN 0.01% Ophth Soln] 1 drop EYEBOTH BEDTIME 11/13/18 [History] Dorzolamide [Trusopt 2% Ophth Soln] 1 drop EYEBOTH BID 11/13/18 [History] Ezetimibe 10 mg PO DAILY 11/13/18 [History] Mirabegron [Myrbetriq] 50 mg PO DAILY 11/13/18 [History] Polyethylene Glycol 3350 [MiraLAX] 17 gm PO DAILY PRN #10 packet 11/18/18 [Rx] Potassium Chloride [Klor-Con 10] 20 meq PO BID 5 Days #10 tab.er 11/18/18 [Rx] Gabapentin [Neurontin] 300 mg PO BID 03/31/19 [History] Multivitamin with Minerals [Multiple Vitamin] 1 tab PO DAILY 03/31/19 [History] Pantoprazole Sodium [Protonix] 40 mg PO .QMORNING 03/31/19 [History] Past Medical History HEENT History: Reports: Glaucoma Cardiovascular History: Reports: CAD, Hypertension, Other (See Below) Other Cardiovascular History: Hx of Pedal edema Respiratory History: Reports: None Gastrointestinal History: Reports: Colon Polyp, GERD Other Gastrointestinal History: Rectal bleed Genitourinary History: Reports: Prostate Disorder, Urinary Incontinence Musculoskeletal History: Reports: Arthritis, Other (See Below) Other Musculoskeletal History: some arthritis. Calcific tendonitis of left shoulder. Cubital tunnel syndrom, right Neurological History: Reports: Neuropathy, Diabetic Other Neuro History: MERALGIA PARESTHETICA Psychiatric History: Reports: None Endocrine/Metabolic History: Reports: Diabetes, Type II, Hypothyroidism Other Endocrine/Metabolic History: HYPOTHRYRIODISM Hematologic History: Reports: None Immunologic History: Reports: None Oncologic (Cancer) History: Reports: None Dermatologic History: Reports: None - Infectious Disease History Infectious Disease History: Reports: Chicken Pox, Measles - Past Surgical History Head Surgeries/Procedures: Reports: None Other HEENT Surgeries/Procedures: EYE SURGERY Cardiovascular Surgical History: Reports: Coronary Artery Bypass, Other (See Below) Other Cardiovascular Surgeries/Procedures: Cardiac catheterization 02/27/2014. Coronary agioplasty 1996. Coronary artery bypass graft 03/05/2014 Respiratory Surgical History: Reports: None GI Surgical History: Reports: Appendectomy, Colonoscopy, EGD, Polypectomy Male Surgical History: Reports: None Endocrine Surgical History: Reports: None Neurological Surgical History: Reports: None Musculoskeletal Surgical History: Reports: None Oncologic Surgical History: Reports: None Other Oncologic Surgeries/Procedures: Biopsy during colonoscopy Dermatological Surgical History: Reports: None Social & Family History - Family History Family Medical History: Noncontributory - Caffeine Use Caffeine Use: Reports: Coffee Other Caffeine Use: AVERAGE OF 1 CUP DAILY 'SOMETIMES' - Living Situation & Occupation Occupation: Retired ED ROS GENERAL - Review of Systems Review Of Systems: ROS reveals no pertinent complaints other than HPI. ED EXAM GENERAL NO PERIP PULSE - Physical Exam Exam: See Below Exam Limited By: No Limitations General Appearance: Alert, WD/WN, No Apparent Distress Eye Exam: Bilateral Eye: PERRL (pupils ER @ 4mm) Ears: Hearing Grossly Normal Throat/Mouth: Normal Voice, No Airway Compromise Head: Atraumatic Neck: Non-Tender, Full Range of Motion Respiratory/Chest: No Respiratory Distress Cardiovascular: Regular Rate, Rhythm GI/Abdominal: Soft, Non-Tender Extremities: Normal Inspection, Normal Range of Motion Neurological: Alert, Oriented, Normal Cognition, No Motor/Sensory Deficits Psychiatric: Normal Affect, Normal Mood Skin Exam: Warm, Dry, Normal Color Lymphatic: No Adenopathy Course - Vital Signs Last Recorded V/S: Last Vital Signs Temp 36.6 C 04/13/19 21:00 Pulse 64 04/13/19 21:00 Resp 20 04/13/19 21:00 BP 149/61 H 04/13/19 21:00 Pulse Ox 99 04/13/19 21:00 - Orders/Labs/Meds Orders: Active Orders 24 hr Category Date Time Status Blood Glucose Check, Bedside [RC] ONETIME Care 04/13/19 21:09 Active Blood Glucose Check, Bedside [RC] ONETIME Care 04/13/19 21:39 Active EKG 12 Lead [EKG Documentation Completion] [RC] STAT Care 04/13/19 21:06 Active Labs: Laboratory Tests 04/13/19 04/13/1919 Range/Units 20:40 20:40 21:53 WBC 8.6 (5.0-10.0) 10^3/uL RBC 5.77 (4.6-6.2) 10^6/uL Hgb 16.9 D (14.0-18.0) g/dL Hct 48.7 (40.0-54.0) % MCV 84.4 (80-100) fL MCH 29.3 (27.0-34.0) pg MCHC 34.7 (33.0-35.0) g/dL Plt Count 155 (150-450) 10^3/uL Neut % (Auto) 72.4 (42.2-75.2) % Lymph % (Auto) 13.9 L (20.5-50.1) % [place] % (Auto) 10.8 H (2-8) % Eos % (Auto) 2.7 (1.0-3.0) % Baso % (Auto) 0.2 (0.0-1.0) % Sodium 138 (135-145) mmol/L Potassium 3.6 (3.6-5.0) mmol/L Chloride 104 (101-111) mmol/L Carbon Dioxide 24.0 (21.0-31.0) mmol/L Anion Gap 13.6 BUN 19 H (7-18) mg/dL Creatinine 0.9 (0.6-1.3) mg/dL Est Cr Clr Drug Dosing TNP Estimated GFR (MDRD) > 60 BUN/Creatinine Ratio 21.11 Glucose 81 (74-105) mg/dL POC Glucose 125 H (83-110) mg/dl Calcium 9.0 (8.4-10.2) mg/dl Total Bilirubin 0.9 (0.2-1.0) mg/dL AST 34 (10-42) IU/L ALT 29 (10-60) IU/L Alkaline Phosphatase 50 (42-121) IU/L Troponin I < 0.02 (0.00-0.02) ng/ml Total Protein 7.4 (6.7-8.2) g/dl Albumin 4.3 (3.2-5.5) g/dl Globulin 3.1 Albumin/Globulin Ratio 1.39 - Re-Assessments/Exams Free Text/Narrative Re-Assessment/Exam: 04/13/19 21:40 results discussed with pt who is feeling fine right now. conversing with friends who state pt is back to normal. 04/13/19 21:58 re-exam; BS 125 pt wants to go home, feels good now. Departure - Departure Time of Disposition: 21:58 Disposition: Home, Self-Care 01 Condition: Good Clinical Impression: Hypoglycemia - Discharge Information Instructions: Hypoglycemia, [id number] Forms: ED Department Discharge Additional Instructions: 1) decrease insulin to 25units instead of 32 units 2) see family doctor tomorrow for follow up 3) recheck if there is any change or concern - My Orders Last 24 Hours: My Active Orders 04/13/19 21:06 EKG 12 Lead [EKG Documentation Completion] [RC] STAT 04/13/19 21:09 Blood Glucose Check, Bedside [RC] ONETIME 04/13/19 21:39 Blood Glucose Check, Bedside [RC] ONETIME - Assessment/Plan Last 24 Hours: My Active Orders 04/13/19 21:06 EKG 12 Lead [EKG Documentation Completion] [RC] STAT 04/13/19 21:09 Blood Glucose Check, Bedside [RC] ONETIME 04/13/19 21:39 Blood Glucose Check, Bedside [RC] ONETIME
[2019-04-13 21:20] LABS: ANION GAP 13.6; CHLORIDE,CL 104 mmol/L (101-111)
[2019-04-13 21:30] VITALS: BP 149/61
== END 2019-04-13 22:11 | disposition home or self-care (01) ==
LOC: DL.ED 21:00
DX: E11.649 Type 2 diabetes mellitus with hypoglycemia without coma (principal); E03.9 Hypothyroidism, unspecified; I10 Essential (primary) hypertension; E11.40 Type 2 diabetes mellitus with diabetic neuropathy, unspecified; I25.10 Atherosclerotic heart disease of native coronary artery without angina pectoris; K21.9 Gastro-esophageal reflux disease without esophagitis; Z79.4 Long term (current) use of insulin; Z79.899 Other long term (current) drug therapy; Z88.8 Allergy status to other drugs, medicaments and biological substances; Z88.0 Allergy status to penicillin
CPT/HCPCS: 36415; 80053; 82962; 84484; 85025; 93005; 99284; 99285-25

== ENCOUNTER 2019-04-17 16:43 | Emergency (ER) | payer MEDICARE, BC ==
[2019-04-17] MEDS ORDERED: Sodium Chloride 0.9% 1,000 ML IV ONE (16:53)
[2019-04-17] MEDS ORDERED: Ondansetron 4 MG/2 ML SDV IV ONE (16:53)
[2019-04-17] MEDS ORDERED: 50% Dextrose in Water 50 ML Syringe IVPUSH ONE (17:02)
[2019-04-17 17:29] LABS: CHLORIDE,CL 99 mmol/L (101-111); SODIUM,NA 137 mmol/L (135-145)
--- NOTE | 2019-04-17 18:52 | EDM.PDOC ---
Scribed by Jennifer Quiroz 04/17/19 2416 for Kendell Brasher PA <Kendell Brasher - Last Filed: 04/17/19 18:52> ED HPI GENERAL MEDICAL PROBLEM - General Chief Complaint: General Stated Complaint: DIZZY, SHAKY Time Seen by Provider: 04/17/19 16:55 Source of Information: Reports: Patient, RN, RN Notes Reviewed History Limitations: Reports: No Limitations - History of Present Illness INITIAL COMMENTS - FREE TEXT/NARRATIVE: Patient is a 73-year-old male patient with nausea and vomiting but noticed his blood sugar was getting low. This started this afternoon. He ate at noon. Sunday he decreased his insulin to 25 units. Patient reports he is used to a higher blood sugar levels. Patient ate peaches and syrup prior to coming in. Onset: Today Duration: Constant Location: Reports: Abdomen Quality: Reports: Ache Severity: Moderate Improves with: Reports: None Worsens with: Reports: None Associated Symptoms: Reports: No Other Symptoms - Related Data Allergies Allergy/AdvReac Type Severity Reaction Status Date / Time Cnblujq-Mno-Dyc Reductase Allergy Mild muscle pain Verified 04/17/19 17:25 Inhibitor atorvastatin calcium Allergy Muscle Verified 04/17/19 17:25 [From Lipitor] Aches ezetimibe [From Vytorin] Allergy Other Verified 04/17/19 17:25 lisinopril Allergy Cough Verified 04/17/19 17:25 Penicillins Allergy Rash Verified 04/17/19 17:25 simvastatin Allergy Muscle Verified 04/17/19 17:25 Aches CALCIUM CONTAINTING COMPOUNDS Allergy Other Uncoded 04/13/19 21:31 Home Meds: Home Meds Aspirin [Halfprin] 81 mg PO DAILY 02/27/14 [History] Brimonidine/Timolol [Combigan 0.2%/0.5% Ophth Soln] 1 drop EYEBOTH BID 02/27/14 [History] Insulin Aspart [NovoLOG] 32 units SUBCUT TIDMEALS 02/27/14 [History] Insulin Detemir [Levemir] 60 units SUBCUT BEDTIME 02/27/14 [History] Levothyroxine 150 mcg PO DAILY 02/27/14 [History] Metoprolol Tartrate [Lopressor] 25 mg PO DAILY 02/27/14 [History] Niacin [Slo-Niacin] 200 mg PO DAILY 02/27/14 [History] amLODIPine Besylate [Amlodipine Besylate] 10 mg PO DAILY 02/27/14 [History] Clopidogrel [Plavix] 75 mg PO DAILY 03/14/14 [History] Losartan [Cozaar] 25 mg PO DAILY 09/27/15 [History] hydroCHLOROthiazide [Hydrochlorothiazide] 12.5 mg PO DAILY 09/27/15 [History] Ascorbate Calcium [Vitamin C] 500 mg PO DAILY 09/28/15 [History] Cholecalciferol (Vitamin D3) [Vitamin D3] 1,000 mg PO DAILY 09/28/15 [History] Oxybutynin Chloride [Ditropan Xl] 15 mg PO DAILY 02/06/17 [History] Bimatoprost [LUMIGAN 0.01% Ophth Soln] 1 drop EYEBOTH BEDTIME 11/13/18 [History] Dorzolamide [Trusopt 2% Ophth Soln] 1 drop EYEBOTH BID 11/13/18 [History] Ezetimibe 10 mg PO DAILY 11/13/18 [History] Mirabegron [Myrbetriq] 50 mg PO DAILY 11/13/18 [History] Polyethylene Glycol 3350 [MiraLAX] 17 gm PO DAILY PRN #10 packet 11/18/18 [Rx] Potassium Chloride [Klor-Con 10] 20 meq PO BID 5 Days #10 tab.er 11/18/18 [Rx] Gabapentin [Neurontin] 300 mg PO BID 03/31/19 [History] Multivitamin with Minerals [Multiple Vitamin] 1 tab PO DAILY 03/31/19 [History] Pantoprazole Sodium [Protonix] 40 mg PO .QMORNING 03/31/19 [History] Past Medical History HEENT History: Reports: Glaucoma Cardiovascular History: Reports: CAD, Hypertension, Other (See Below) Other Cardiovascular History: Hx of Pedal edema Respiratory History: Reports: None Gastrointestinal History: Reports: Colon Polyp, GERD Other Gastrointestinal History: Rectal bleed Genitourinary History: Reports: Prostate Disorder, Urinary Incontinence Musculoskeletal History: Reports: Arthritis, Other (See Below) Other Musculoskeletal History: some arthritis. Calcific tendonitis of left shoulder. Cubital tunnel syndrom, right Neurological History: Reports: Neuropathy, Diabetic Other Neuro History: MERALGIA PARESTHETICA Psychiatric History: Reports: None Endocrine/Metabolic History: Reports: Diabetes, Type II, Hypothyroidism Other Endocrine/Metabolic History: HYPOTHRYRIODISM Hematologic History: Reports: None Immunologic History: Reports: None Oncologic (Cancer) History: Reports: None Dermatologic History: Reports: None - Infectious Disease History Infectious Disease History: Reports: Chicken Pox, Measles - Past Surgical History Head Surgeries/Procedures: Reports: None Other HEENT Surgeries/Procedures: EYE SURGERY Cardiovascular Surgical History: Reports: Coronary Artery Bypass, Other (See Below) Other Cardiovascular Surgeries/Procedures: Cardiac catheterization 02/27/2014. Coronary agioplasty 1996. Coronary artery bypass graft 03/05/2014 Respiratory Surgical History: Reports: None GI Surgical History: Reports: Appendectomy, Colonoscopy, EGD, Polypectomy Male Surgical History: Reports: None Endocrine Surgical History: Reports: None Neurological Surgical History: Reports: None Musculoskeletal Surgical History: Reports: None Oncologic Surgical History: Reports: None Other Oncologic Surgeries/Procedures: Biopsy during colonoscopy Dermatological Surgical History: Reports: None Social & Family History - Family History Family Medical History: Noncontributory - Caffeine Use Caffeine Use: Reports: Coffee Other Caffeine Use: AVERAGE OF 1 CUP DAILY 'SOMETIMES' - Living Situation & Occupation Occupation: Retired ED ROS GENERAL - Review of Systems Review Of Systems: ROS reveals no pertinent complaints other than HPI. ED EXAM, GENERAL - Physical Exam Exam: See Below Exam Limited By: No Limitations General Appearance: Other (nausea and vomiting) Eye Exam: Bilateral Eye: EOMI, Normal Inspection, PERRL Ears: Normal External Exam, Normal Canal, Hearing Grossly Normal, Normal TMs Nose: Normal Inspection, Normal Mucosa, No Blood Throat/Mouth: Normal Inspection, Normal Lips, Normal Teeth, Normal Gums, Normal Oropharynx, Normal Voice, No Airway Compromise Head: Atraumatic, Normocephalic Neck: Normal Inspection, Supple, Non-Tender, Full Range of Motion Respiratory/Chest: No Respiratory Distress, Lungs Clear, Normal Breath Sounds, No Accessory Muscle Use, Chest Non-Tender Cardiovascular: Normal Peripheral Pulses, Regular Rate, Rhythm, No Edema, No Gallop, No JVD, No Murmur, No Rub GI/Abdominal: Normal Bowel Sounds, Soft, Non-Tender, No Organomegaly, No Distention, No Abnormal Bruit, No Mass (Male) Exam: Deferred Rectal (Males) Exam: Deferred Back Exam: Normal Inspection, Full Range of Motion, NT Extremities: Normal Inspection, Normal Range of Motion, Non-Tender, Normal Capillary Refill, No Pedal Edema Neurological: Alert, Oriented, CN II-XII Intact, Normal Cognition, Normal Gait, Normal Reflexes, No Motor/Sensory Deficits Psychiatric: Normal Affect, Normal Mood Skin Exam: Warm, Dry, Intact, Normal Color, No Rash Lymphatic: No Adenopathy Course - Vital Signs Last Recorded V/S: Last Vital Signs Temp 35.9 C 04/17/19 16:53 Pulse 53 L 04/17/19 17:52 Resp 24 H 04/17/19 17:52 BP 135/77 04/17/19 16:53 Pulse Ox 96 04/17/19 17:52 - Orders/Labs/Meds Orders: Active Orders 24 hr Category Date Time Status Blood Glucose Check, Bedside [RC] ONETIME Care 04/17/19 17:00 Active Blood Glucose Check, Bedside [RC] ONETIME Care 04/17/19 17:30 Active Chest 1V Frontal [CR] Urgent Exams 04/17/19 19:14 Taken Head wo Cont [CT] Urgent Exams 04/17/19 19:04 Taken URINALYSIS W/MICROSCOPIC [UA W/MICROSCOPIC] [URIN] Stat Lab 04/17/19 19:31 Received Labs: Laboratory Tests 04/17/19 04/17/19 04/17/19 Range/Units 16:48 17:03 17:03 WBC 10.7 H (5.0-10.0) 10^3/uL RBC 5.98 (4.6-6.2) 10^6/uL Hgb 17.5 (14.0-18.0) g/dL Hct 50.6 (40.0-54.0) % MCV 84.6 (80-100) fL MCH 29.3 (27.0-34.0) pg MCHC 34.6 (33.0-35.0) g/dL Plt Count 164 (150-450) 10^3/uL Neut % (Auto) 82.7 H (42.2-75.2) % Lymph % (Auto) 9.6 L (20.5-50.1) % Allen % (Auto) 7.1 (2-8) % Eos % (Auto) 0.4 L (1.0-3.0) % Baso % (Auto) 0.2 (0.0-1.0) % Sodium 137 (135-145) mmol/L Potassium 4.0 (3.6-5.0) mmol/L Chloride 99 L (101-111) mmol/L Carbon Dioxide 26.0 (21.0-31.0) mmol/L Anion Gap 16.0 BUN 16 (7-18) mg/dL Creatinine 0.8 (0.6-1.3) mg/dL Est Cr Clr Drug Dosing 84.91 mL/min Estimated GFR (MDRD) > 60 BUN/Creatinine Ratio 20.00 Glucose 86 (74-105) mg/dL POC Glucose 76 L (83-110) mg/dl Calcium 9.5 (8.4-10.2) mg/dl Total Bilirubin 1.5 H (0.2-1.0) mg/dL AST 41 (10-42) IU/L ALT 33 (10-60) IU/L Alkaline Phosphatase 53 (42-121) IU/L Total Protein 7.8 (6.7-8.2) g/dl Albumin 4.7 (3.2-5.5) g/dl Globulin 3.1 Albumin/Globulin Ratio 1.52 04/17/19 04/17/19 Range/Units 17:38 18:25 WBC (5.0-10.0) 10^3/uL RBC (4.6-6.2) 10^6/uL Hgb (14.0-18.0) g/dL Hct (40.0-54.0) % MCV (80-100) fL MCH (27.0-34.0) pg MCHC (33.0-35.0) g/dL Plt Count (150-450) 10^3/uL Neut % (Auto) (42.2-75.2) % Lymph % (Auto) (20.5-50.1) % Allen % (Auto) (2-8) % Eos % (Auto) (1.0-3.0) % Baso % (Auto) (0.0-1.0) % Sodium (135-145) mmol/L Potassium (3.6-5.0) mmol/L Chloride (101-111) mmol/L Carbon Dioxide (21.0-31.0) mmol/L Anion Gap BUN (7-18) mg/dL Creatinine (0.6-1.3) mg/dL Est Cr Clr Drug Dosing mL/min Estimated GFR (MDRD) BUN/Creatinine Ratio Glucose (74-105) mg/dL POC Glucose 123 H 121 H (83-110) mg/dl Calcium (8.4-10.2) mg/dl Total Bilirubin (0.2-1.0) mg/dL AST (10-42) IU/L ALT (10-60) IU/L Alkaline Phosphatase (42-121) IU/L Total Protein (6.7-8.2) g/dl Albumin (3.2-5.5) g/dl Globulin Albumin/Globulin Ratio Meds: Medications Discontinued Medications Generic Name Dose Route Start Last Admin Trade Name Freq PRN Reason Stop Dose Admin Dextrose/Water 50 ml 04/17/19 17:02 04/17/19 17:10 Dextrose 50% In Water IVPUSH 04/17/19 17:03 25 ml ONETIME ONE Administration Sodium Chloride 1,000 mls @ 999 mls/hr 04/17/19 16:53 04/17/19 17:11 Normal Saline IV 04/17/19 17:53 999 mls/hr .BOLUS ONE Administration Ondansetron HCl 4 mg 04/17/19 16:53 04/17/19 17:09 Zofran IV 04/17/19 16:54 4 mg ONETIME ONE Administration Departure - Departure Disposition: Home, Self-Care 01 Clinical Impression: Hypoglycemia - Discharge Information Instructions: Hypoglycemia, [id number] Forms: ED Department Discharge Additional Instructions: 1) decrease insulin to 10 units and check blood sugar daily 2) follow up with family doctor. - My Orders Last 24 Hours: My Active Orders 04/17/19 19:04 Head wo Cont [CT] Urgent 04/17/19 19:14 Chest 1V Frontal [CR] Urgent 04/17/19 19:31 URINALYSIS W/MICROSCOPIC [UA W/MICROSCOPIC] [URIN] Stat - Assessment/Plan Last 24 Hours: My Active Orders 04/17/19 19:04 Head wo Cont [CT] Urgent 04/17/19 19:14 Chest 1V Frontal [CR] Urgent 04/17/19 19:31 URINALYSIS W/MICROSCOPIC [UA W/MICROSCOPIC] [URIN] Stat <Jose R Alvarado - Last Filed: 04/17/19 20:06> Course - Re-Assessments/Exams Free Text/Narrative Re-Assessment/Exam: 04/17/19 19:06 results discussed with pt who is feeling good presently but friend are more concerned. discussed CAT of head and everyone concurred 04/17/19 19:58 results discussed with pt who is feeling better and prefers home, pt states today after taking insulin and after eating he felt like a reaction is coming on , so he ate peaches with syrup. Departure - Departure Time of Disposition: 20:05 Condition: Fair I have read and agree with the documentation that has been completed regarding this visit. By signing this record, I attest that the documentation was completed in my physical presence and is an accurate record of the encounter.
[2019-04-17 20:13] VITALS: BP 132/89
== END 2019-04-17 20:15 | disposition home or self-care (01) ==
LOC: DL.ED 16:43
DX: E11.649 Type 2 diabetes mellitus with hypoglycemia without coma (principal); I25.10 Atherosclerotic heart disease of native coronary artery without angina pectoris; E11.40 Type 2 diabetes mellitus with diabetic neuropathy, unspecified; Z88.8 Allergy status to other drugs, medicaments and biological substances; Z79.82 Long term (current) use of aspirin; Z79.01 Long term (current) use of anticoagulants
CPT/HCPCS: 36415; 70450; 71045; 80053; 81001; 82962; 85025; 96365; 96375; 99285; J2405; J7030; J7060

== ENCOUNTER 2022-01-26 05:23 | Day surgery (SDC) | payer MEDICARE, BC ==
[~2022-01-26 05:23] MED LIST changes: -Dextrose 5%-0.45% NaCl 1,000 ML IV SCH; -Midazolam 1 MG/ML 2 ML SDV IV ONE; -Midazolam 1 MG/ML 2 ML SDV ONE; -Sodium Chloride 0.9% 10 ML Syringe FLUSH PRN; +Sodium Chloride 0.9% 10 ML Syringe FLUSH SCH; -fentaNYL 100 MCG/2 ML SDV IV ONE; -fentaNYL 100 MCG/2 ML SDV ONE
[2022-01-26] MEDS ORDERED: Midazolam 1 MG/ML 2 ML SDV IV ONE ×5 (05:24→06:35)
[2022-01-26] MEDS ORDERED: fentaNYL 100 MCG/2 ML SDV IV ONE ×3 (05:24→06:28)
[2022-01-26] MEDS ORDERED: Sodium Chloride 0.9% 10 ML Syringe FLUSH PRN (05:30)
[2022-01-26] MEDS ORDERED: Dextrose 5%-0.45% NaCl 1,000 ML IV SCH (05:30)
[2022-01-26] MEDS ORDERED: fentaNYL 100 MCG/2 ML SDV ONE (06:13)
[2022-01-26] MEDS ORDERED: Midazolam 1 MG/ML 2 ML SDV ONE (06:13)
[2022-01-26 11:00] VITALS: BP 143/71; PULSE 100
== END 2022-01-26 08:45 | disposition home or self-care (01) ==
LOC: DL.ENDO 05:23
PROVIDERS: ATTEND Internal Medicine Gastroenterology
DX: K57.31 Diverticulosis of large intestine without perforation or abscess with bleeding (principal); K64.8 Other hemorrhoids; E66.09 Other obesity due to excess calories; E78.5 Hyperlipidemia, unspecified; E03.9 Hypothyroidism, unspecified; E11.9 Type 2 diabetes mellitus without complications; I25.10 Atherosclerotic heart disease of native coronary artery without angina pectoris
CPT/HCPCS: 45378; J2250; J3010; J7042

== ENCOUNTER 2022-06-05 20:45 | Emergency (ER) | payer MEDICARE, BC ==
[2022-06-05] MEDS ORDERED: Tetracaine HCl/PF 0.5% 4 ML Bottle EYELF ONE (20:49)
[2022-06-05] MEDS ORDERED: Fluorescein 1 MG Ophth Strip EYELF ONE (20:49)
[2022-06-05 21:12] VITALS: BP 160/63; PULSE 59
[2022-06-05] MEDS ORDERED: Gentamicin 0.3% Ophth Soln 5 ML Bottle ONE (21:19)
[2022-06-06] MEDS ORDERED: Gentamicin 0.3% Ophth Soln 5 ML Bottle EYERT SCH (09:00)
== END 2022-06-05 21:24 | disposition home or self-care (01) ==
LOC: DL.ED 20:45
DX: S05.01XA Injury of conjunctiva and corneal abrasion without foreign body, right eye, initial encounter (principal); I25.10 Atherosclerotic heart disease of native coronary artery without angina pectoris; I10 Essential (primary) hypertension; K21.9 Gastro-esophageal reflux disease without esophagitis; E11.40 Type 2 diabetes mellitus with diabetic neuropathy, unspecified; E03.9 Hypothyroidism, unspecified; Z88.8 Allergy status to other drugs, medicaments and biological substances; Z88.0 Allergy status to penicillin; Z79.82 Long term (current) use of aspirin; Z79.4 Long term (current) use of insulin; Z79.899 Other long term (current) drug therapy; Z79.02 Long term (current) use of antithrombotics/antiplatelets; W22.09XA Striking against other stationary object, initial encounter
CPT/HCPCS: 99283; 99284; A9270

== ENCOUNTER 2024-07-25 09:42 | Emergency (ER) | payer OTHER ==
[2024-07-25 10:19] LABS: BASOPHILS PERCENT AUTO 0.3 % (0.0-1.0); EOSINOPHILS PERCENT AUTO 6.9 % (1.0-3.0); HEMATOCRIT 45.4 % (40.0-54.0); HEMOGLOBIN 15.5 g/dL (14.0-18.0); MEAN CORPUSCULAR HEMOGLOBIN 29.5 pg (27.0-34.0); MEAN CORPUSCULAR HGB CONC 34.1 g/dL (33.0-35.0); MEAN CORPUSCULAR VOLUME 86.5 fL (80-100); NEUTROPHILS PERCENT AUTO 58.8 % (42.2-75.2); PLATELET COUNT,PLT 172 10^3/uL (150-450); RED BLOOD CELL COUNT 5.25 10^6/uL (4.6-6.2); WHITE BLOOD CELL COUNT,WBC 5.9 10^3/uL (5.0-10.0)
[2024-07-25 10:24] VITALS: BP 139/60; PULSE 66
[2024-07-25 10:38] LABS: A/G RATIO 1.1; ALANINE AMINOTRANSFERASE,ALT 33 U/L (16-63); ALBUMIN 3.4 g/dL (3.4-5.0); ALKALINE PHOSPHATASE 53 U/L (46-116); ANION GAP 12.9 mEq/L (7-13); ASPARTATE AMNIOTRANSFERASE,AST 23 U/L (15-37); BILIRUBIN TOTAL 0.7 mg/dL (0.2-1.0); BLOOD UREA NITROGEN,BUN 14 mg/dL (7-18); CALCIUM 8.7 mg/dL (8.5-10.1); CARBON DIOXIDE,CO2 29 mmol/L (21-32); CHLORIDE,CL 102 mmol/L (98-107); CREATINE KINASE,CK 137 U/L (39-308); ESTIMATED GFR 77 mL/min (>=60); GLUCOSE RANDOM 177 mg/dL (70-99); MAGNESIUM 1.8 mg/dL (1.8-2.4); POTASSIUM,K 3.9 mmol/L (3.5-5.1); PROTEIN TOTAL,TP 6.5 g/dL (6.4-8.2); SODIUM,NA 140 mmol/L (136-145)
== END 2024-07-25 11:02 | disposition home or self-care (01) ==
LOC: DL.ED 09:42
DX: M79.661 Pain in right lower leg (principal); I25.10 Atherosclerotic heart disease of native coronary artery without angina pectoris; I10 Essential (primary) hypertension; E11.9 Type 2 diabetes mellitus without complications; E03.9 Hypothyroidism, unspecified; Z95.5 Presence of coronary angioplasty implant and graft; Z90.49 Acquired absence of other specified parts of digestive tract; Z79.82 Long term (current) use of aspirin; Z79.4 Long term (current) use of insulin; Z79.899 Other long term (current) drug therapy; Z88.8 Allergy status to other drugs, medicaments and biological substances; Z88.0 Allergy status to penicillin
CPT/HCPCS: 36415; 80053; 82550; 83735; 85025; 85379; 93971; 99284

== ENCOUNTER 2025-01-12 08:25 | Emergency (ER) | payer OTHER ==
[2025-01-12] MEDS: Acetaminophen 325 MG Tab PO ONE (08:50)
[2025-01-12 09:47] VITALS: BP 131/74; PULSE 70
== END 2025-01-12 09:59 | disposition home or self-care (01) ==
LOC: DL.ED 08:25
DX: M25.511 Pain in right shoulder (principal); I10 Essential (primary) hypertension; I25.10 Atherosclerotic heart disease of native coronary artery without angina pectoris; E11.40 Type 2 diabetes mellitus with diabetic neuropathy, unspecified; E03.9 Hypothyroidism, unspecified; M19.90 Unspecified osteoarthritis, unspecified site; Z88.8 Allergy status to other drugs, medicaments and biological substances; Z90.49 Acquired absence of other specified parts of digestive tract; Z79.899 Other long term (current) drug therapy; Z79.82 Long term (current) use of aspirin; Z79.4 Long term (current) use of insulin; Z79.890 Hormone replacement therapy
CPT/HCPCS: 73030-RT; 99283; A9270-GY

== ENCOUNTER 2025-07-13 10:36 | Emergency (ER) | payer OTHER ==
[2025-07-13] MEDS ORDERED: Sodium Chloride 0.9% 10 ML Syringe FLUSH PRN (11:28)
[2025-07-13 11:54] LABS: BASOPHILS PERCENT AUTO 0.4 % (0.0-1.0); EOSINOPHILS PERCENT AUTO 6.6 % (1.0-3.0); LYMPHOCYTES PERCENT AUTO 27.3 % (20.5-50.1); MONOCYTES PERCENT AUTO 12.9 % (2-8); NEUTROPHILS PERCENT AUTO 52.8 % (42.2-75.2); PLATELET COUNT,PLT 147 10^3/uL (150-450); RED BLOOD CELL COUNT 5.30 10^6/uL (4.6-6.2); WHITE BLOOD CELL COUNT,WBC 5.4 10^3/uL (5.0-10.0)
[2025-07-13 12:13] LABS: BLOOD UREA NITROGEN,BUN 16.0 mg/dL (7-18); CARBON DIOXIDE,CO2 28.0 mmol/L (21-32); CHLORIDE,CL 102.0 mmol/L (98-107); CREATININE 0.88 mg/dL (0.70-1.30); EST CRCL DRUG DOSING (CG) 66.95 mL/min; GLUCOSE RANDOM 127.0 mg/dL (70-99); POTASSIUM,K 4.0 mmol/L (3.5-5.1); SODIUM,NA 139.0 mmol/L (136-145)
[2025-07-13 12:16] LABS: ESTIMATED GFR 87.0 mL/min (>=60)
[2025-07-13 12:28] LABS: SEDIMENTATION RATE MANUAL 1 mm/hr (0-15)
[2025-07-13] MEDS: Iopamidol 612 MG/ML 100 ML Bottle IVPUSH ONE (13:02)
[2025-07-13 13:23] VITALS: BP 140/50; PULSE 58
== END 2025-07-13 14:22 | disposition home or self-care (01) ==
LOC: DL.ED 10:36
DX: M54.2 Cervicalgia (principal); I10 Essential (primary) hypertension; I25.10 Atherosclerotic heart disease of native coronary artery without angina pectoris; E03.9 Hypothyroidism, unspecified; Z88.8 Allergy status to other drugs, medicaments and biological substances; Z79.82 Long term (current) use of aspirin; Z79.4 Long term (current) use of insulin; Z79.890 Hormone replacement therapy
CPT/HCPCS: 36415; 70491; 80048; 85025; 85651; 86140; 99283; 99284; Q9967